=== PATIENT | female | born 1960 | race Caucasian/White ===

== ENCOUNTER 2016-11-04 13:01 | Emergency (ER) | payer OTHER ==
--- NOTE | 2016-11-04 13:49 | EDPHY ---
HPI/HX/ROS/PE/MDM Narrative: CHIEF COMPLAINT: Nausea HPI: The patient is a 56 y/o female, with a history of fibromyalgia and asthma, complaining of nausea she attributes to eating shrimp last night. She says she was recently diagnosed with several food allergies through skin testing, but shellfish was not tested. A short time after eating shrimp last night she developed the sensation of a "heavy stomach" and waxing and waning nausea. She had frequent non-diarrheal bowel movements through the night and has ongoing nausea this morning. She denies abdominal pain, rash, itching, fever, blood in stool, vomiting, dyspnea, chest pain, or throat tightness. She says her symptoms are similar to prior reactions to food allergens. She doesn't tolerate side effects from prednisone and Benadryl well, so she has not taken anything for her symptoms. REVIEW OF SYSTEMS: Aside from elements discussed in the HPI, a comprehensive 10-point review of systems was reviewed and is negative. PMH: Fibromyalgia, asthma, diabetes, sleep apnea Prior medical records reviewed including ED visit on 11/29/15 for bug bite. SOCIAL HISTORY: Nonsmoker, no recent alcohol use PHYSICAL EXAM: General:Patient is alert, morbidly obese, in no acute distress. ENT:Eyes are normal to inspection. ENT inspection normal. Neck: Normal inspection. Full range of motion. Respiratory:No respiratory distress. Breath sounds normal bilaterally. Cardiovascular: Regular rate and rhythm. Strong peripheral pulses. Normal cap refill. Abdomen:The abdomen is nontender to palpation. There are no peritoneal signs. Back: Normal to inspection. No tenderness to palpation. Skin: Normal color. No rash. Warm and dry. Extremities: Normal appearance. Full range of motion. Neuro: Oriented x3. Normal motor function. Normal sensory function. ED Course: I discussed treatment options with the patient and she has opted to not take any medications for her symptoms. She states, "I will vote for riding it out safely rather than making things worse" and "I'm good to go home." Given that she has no respiratory distress and a benign abdominal exam, I agree that she is safe for discharge at this time. We discussed return precautions and recommended follow up with her advanced [employer] delivery system for any concern regarding shellfish allergy. General Time Seen by Provider: 11/04/16 13:36 Initial Vital Signs: Initial Vital Signs Temperature (C) 36.5 C 11/04/16 13:14 Heart Rate 73 11/04/16 13:14 Respiratory Rate 16 11/04/16 13:14 Blood Pressure 124/69 H 11/04/16 13:14 O2 Sat (%) 99 11/04/16 13:14 O2 Delivery Mode Room Air Allergies/Adverse Reactions: cephalexin Allergy (Verified 11/29/15 00:32) metformin Allergy (Verified 11/29/15 00:32) morphine Allergy (Verified 11/29/15 00:32) sitagliptin phosphate [From Januvia] Allergy (Verified 11/29/15 00:32) Sulfa (Sulfonamide Antibiotics) Allergy (Verified 11/29/15 00:32) Home Medications: Medication Instructions Recorded Albuterol 11/29/15 Aspirin 81mg (OTC) 11/29/15 Lisinopril/Hctz 20/12.5MG 11/29/15 Pioglitazone HCl 11/29/15 SIMVASTATIN 11/29/15 Sertraline HCl [Zoloft 50mg (*)] 11/29/15 Departure - Departure Disposition: Home, Routine, Self-Care Clinical Impression: Nausea Condition: Good Instructions: Acute Nausea and Vomiting (ED) Additional Instructions: Follow up with your [employer] delivery system for continued concerns about shellfish allergy. Okay to take 25mg of Benadryl daily if you develop signs of allergic reaction. Return to the ED if you experience shortness of breath, abdominal pain, fever, or other worsening of condition. Referrals: [facility] ROBL[facility] [Other] - As per Instructions Report Scribed for: Marcus Hair Report Scribed by: Michelle Gutierrez Date of Report: 11/04/16 Time of Report: 13:39 Physician Review and Approval Statement: Portions of this note were transcribed by an ED scribe. I personally performed the history, physical exam, and medical decision making; and confirm the accuracy of the information in the transcribed note.
[2016-11-04 13:52] VITALS: BP 122/67; PULSE 82; RESP 18; TEMP 98.1; O2SAT 95
== END 2016-11-04 13:51 | disposition home or self-care (01) ==
DX: R11.0 Nausea (principal); E11.9 Type 2 diabetes mellitus without complications; J45.909 Unspecified asthma, uncomplicated; Z79.82 Long term (current) use of aspirin

== ENCOUNTER 2016-11-23 10:20 | Inpatient (IN) | payer OTHER ==
--- NOTE | 2016-11-23 10:44 | EDPHY ---
H & P Time Seen by Provider: 11/23/16 10:23 HPI/ROS: CHIEF COMPLAINT: Right medial knee pain HISTORY OF PRESENT ILLNESS: 56 year old obese female arrives via ambulance after she slipped on a wet surface sustained a hypervalgus stress to her right knee. She was able to bear weight after some individuals helped her get up. Reproducible pain with full weight-bearing. No direct trauma to the right knee. Prior history of fibromyalgia. She denies: Head injury, back pain injury, buttock pain or injury REVIEW OF SYSTEMS: A ten point review of systems was performed and is negative with the exception of the items mentioned in the HPI PAST MEDICAL/SURGICAL HISTORY: Diabetes. Fibromyalgia. Sleep apnea SOCIAL HISTORY: denies alcohol use at time of incident PHYSICAL EXAM 1) GENERAL: obese, alert and oriented. Appears to be in no acute distress. Answering questions appropriately. 2) HEAD: Normocephalic, atraumatic 3) HEENT: Pupils equal, round, reactive to light bilaterally. . 4) NECK: Posterior cervical spine is nontender, no stepoff, no effusion. Full range of motion which does not elicit any midline cervical spine pain, no posterior midline tenderness, no step-off. 5) LUNGS: Clear to auscultation bilaterally, no wheezes 6) HEART: Regular rate and rhythm, 7) ABDOMEN: No guarding, no rebound, no focal tenderness, no peritoneal signs, no signs of trauma, no ecchymosis 8) MUSCULOSKELETAL: Due to the patient's body habitus normal anatomic landmarks are challenging to appreciate.Exam of the right knee shows no visible soft tissue swelling. Normal coloration temperature. Reproducible pain with range of motion to the medial aspect and reproducible tenderness to palpation medial aspect . Compartments are soft. 9) BACK: No midline vertebral tenderness, no fluctuance, no step-off, no obvious trauma, no visual or palpable abnormality. 10) SKIN: No laceration. No abrasion DIFFERENTIAL DIAGNOSIS: in no particular order including but not limited to fracture, sprain, dislocation Smoking Status: Never smoked Constitutional: Initial Vital Signs Temperature (C) 36.5 C 11/23/16 10:20 Heart Rate 74 11/23/16 10:20 Respiratory Rate 16 11/23/16 10:20 Blood Pressure 108/56 L 11/23/16 10:20 O2 Sat (%) 95 11/23/16 10:20 O2 Delivery Mode Room Air Allergies/Adverse Reactions: almond Allergy (Verified 11/23/16 10:38) apple Allergy (Verified 11/23/16 10:38) carrot Allergy (Verified 11/23/16 10:38) cephalexin Allergy (Verified 11/29/15 00:32) garlic Allergy (Verified 11/23/16 10:38) metformin Allergy (Verified 11/29/15 00:32) morphine Allergy (Verified 11/29/15 00:32) Pork/Porcine Containing Products Allergy (Verified 11/23/16 10:38) sitagliptin phosphate [From Januvia] Allergy (Verified 11/29/15 00:32) squash Allergy (Verified 11/23/16 10:38) Sulfa (Sulfonamide Antibiotics) Allergy (Verified 11/29/15 00:32) tomato Allergy (Verified 11/23/16 10:38) green portillo Allergy (Uncoded 11/23/16 10:38) salmon Allergy (Uncoded 11/23/16 10:38) Home Medications: Medication Instructions Recorded Albuterol 11/29/15 Aspirin 81mg (OTC) 11/29/15 Lisinopril/Hctz 20/12.5MG 11/29/15 Pioglitazone HCl 11/29/15 SIMVASTATIN 11/29/15 Sertraline HCl [Zoloft 50mg (*)] 11/29/15 MDM/Departure - MDM Imaging Results: Imaging Impressions Knee X-Ray 11/23/16 10:34 Impression: Stable tibial plateau fracture. Recommend noncontrast CT in this obese patient. Results discussed with Luis Fernando Jacques. Extremity CT 11/23/16 11:11 Impression: Comminuted, but basically nondepressed and nondisplaced tibial plateau fracture of the right knee, with ACL attached to the anterior tibial spines, which are lifted off of the proximal tibia by 3 mm. Findings and recommendations discussed with Henry Jacques at 1330 hour, 2016. Final report concurs with initial preliminary interpretation. Images reviewed myself Procedures: Procedure: Splint Patient has a tibial plateau fracture. Because of her body habitus a prefabricated knee immobilizer would not fit the patient. Subsequently the ER staff built a knee immobilizer with strips of Orthoglass After application of the splint I returned and re-examined the patient. The splint was adequately immobilizing the joint and distal to the splint the patient's circulation and sensation were intact. Patient shows no signs of compartment syndrome. ED Course/Re-evaluation: Patient was re-evaluated with serial examinations. She is neurovascular intact and has soft compartments. Discussed the case with secondary supervising physician Dr. Aniket Colon. I consulted with orthopedic REE Anthony with Dr. Bebo Addison who recommended immobilization and follow up on Saturday (today is Saturday). 3:50 p.m.: Patient had a knee immobilizer built by the ER mri technician staff and she was re-evaluated. She informs me that with this splint on she does not feel safe being discharged, states that while in the emergency department she has been unable to get up from the commode without assistance, lives by herself in a single level apartment. Crutch walking is not advised to the patient's body habitus. I Think patient will more than likely necessitate admission to the hospital for PT OT and orthopedic consultation. Patient is agreeable with this stating that she does not feel safe being discharged 4:00 p.m.: phone consultation with REE Gould with Dr Addison 4:20 p.m.: Phone consultation with Orthopedics, informed that this is nonsurgical and they recommend admission to hospitalist service for PT/OT. 4:24 p.m.: Phone consultation with hospitalist Dr. mckeon will admit patient - Depart Disposition: [facility] Inpatient Acute Clinical Impression: Unable to care for self Right medial tibial plateau fracture Qualifiers: Encounter type: initial encounter Fracture type: closed Qualified Code(s): S82.131A - Displaced fracture of medial condyle of right tibia, initial encounter for closed fracture Morbid obesity Qualifiers: Obesity type: unspecified obesity type Qualified Code(s): E66.01 - Morbid ( severe) obesity due to excess calories Condition: Good Additional Instructions: Return to the ER immediately if you experience discoloration, have worsening pain, numbness, tingling, or any other symptoms that concern you. If you received x-rays in the emergency department today, be advised, that ligamentous , tendon, muscular, and other non-bony injury cannot be fully ruled out. Try to keep your affected extremity elevated above the level of your chest, and keep cold packs on the affected area, for the next 48 hours. Referrals: [facility] ROBL[facility] [Other] - As per Instructions
[2016-11-23] MEDS ORDERED: ONDANSETRON 4 MG/2 ML VIAL IVP PRN (16:59)
[2016-11-23] MEDS ORDERED: ONDANSETRON DISINTEGRATING 4 MG TAB PO PRN (16:59)
--- NOTE | 2016-11-23 17:35 | GHP ---
[f rep st] HISTORY AND PHYSICAL DATE OF ADMISSION: 11/23/2016 HISTORY OF PRESENT ILLNESS: The patient is a pleasant 56-year-old female with history of diabetes, hypertension, and morbid obesity, who had a mechanical fall today. She mopped her kitchen and she t urned around and her legs hyper-extended. She fell on the ground and landed on her bottom. She did not have antecedent palpitations or loss of consciousness. Did not hit her head. She was able to bear weight but with a great deal of pain, so she called 911. She presented in the emergency [facility] where she was diagnosed with a tibial plateau fracture. Currently she says her pain is well controlled. REVIEW OF SYSTEMS: Complete 10-point review of systems conducted and negative except as noted in th e HPI. PAST MEDICAL HISTORY: Morbid obesity (BMI 65), diabetes on oral's, hypertension, hyperlipidemia, fi bromyalgia, and irritable bowel syndrome with mostly diarrhea. ALLERGIES: Almonds, apples, carrots, Keflex, garlic, metformin, morphine, pork, sitagliptin, squash , sulfa, tomato, green beans, salmon, and brazil nuts. HOME MEDICATIONS: Simvastatin, sertraline, Pioglitazone, lisinopril/hydrochlorothiazide, aspirin, a nd albuterol, SOCIAL HISTORY: No tobacco. Minimal alcohol. SOCIAL HISTORY: Reviewed and unremarkable. PHYSICAL EXAMINATION: VITAL SIGNS: Temp 36.5, blood pressure 108/56, pulse 74, breathing 16 times a minute, 95% on room air. GENERAL: No acute distress. HEENT: Sclerae anicteric. Oropharynx olga lidia ar. Mucous membranes moist. NECK: Supple without lymphadenopathy or JVD. LUNGS: Clear to auscul tation bilaterally. HEART: S1, S2. ABDOMEN: Soft, nontender, nondistended. LOWER EXTREMITIES: No edema. Calves nontender. Her right lower extremity is in a knee immobilizer. SKIN: No rash. NEUROLOGIC: Nonfocal. LABORATORY DATA: There are no labs. RADIOLOGY: Knee x-ray: Images reviewed/interpreted by me, shows a tibial plateau fracture. CT con firms tibial plateau fracture. I discussed the case with Luis Fernando Jacques PA-C, in the emergency department. ASSESSMENT/PLANS: A 56-year-old female with morbid obesity, mechanical fall, and tibial plateau fra cture. 1. Tibial plateau fracture: The patient is nonweightbearing on that side. Her size makes being ab le to ambulate and take care of herself exceedingly difficult, so at this point in time she is admit carmen. Orthopedics has been consulted and felt this to be non operative. They will see her in consul tation. 2. Diabetes: Will reconcile her medicines and follow her blood sugars. I will write for low-dose sliding scale. 3. Prophylaxis: High risk, enoxaparin indicated. 4. Hypertension: Continue her lisinopril/hydrochlorothiazide. 5. Pain. Scheduled Tylenol, p.r.n., oxycodone. Does not need IVs. 6. Disposition: Inpatient status. /[id number]/MODL
[2016-11-23] MEDS ORDERED: ALBUTEROL 60 PUFFS/8 GM MDI IH PRN (18:34)
[2016-11-23] MEDS ORDERED: ALBUTEROL 200 PUFFS/18 GM MDI IH PRN (18:39)
--- NOTE | 2016-11-23 18:49 | SOAPPROG ---
SOAP Progress Note Assessment/Plan: Assessment/Plan: Right tibial plateau fracture -Nonoperative treatment at this time -Pt will remain NWB of her RLE, and remain in orthoglass post/collateral splint -Cont PT/OT, eval for use of assistive devices, and if pt qualifies for inpt rehab -Cont Lovenox for VTE chemoprophylaxis per medicine service -Cont compressive estrella bandages,a nd encourage contralateral ankle pumps for VTE mechanical prophylaxis -Likely will need lots of assistance on d/c, likely at least SNF or inpatient rehab for mobilization 11/23/16 18:46 Subjective: Pt seen at bedside. No complaints of significant pain, or new onset n/t. Tolerating diet and medications well. Objective: Vital Signs Temp Pulse Resp BP Pulse Ox 36.3 C 77 16 129/76 H 99 11/23/16 17:31 11/23/16 17:31 11/23/16 17:31 11/23/16 17:31 11/23/16 17:31 Orthopedic consultation dictated. ICD10 Worksheet Patient Problems: Problems Problem Status Onset Morbid obesity Acute Right medial tibial plateau fracture Acute
[2016-11-23] MEDS: ACETAMINOPHEN 325 MG TAB PO SCH ×2 (19:43→23:53)
--- NOTE | 2016-11-23 20:05 | GCON ---
[f rep st] CONSULTATION ORTHOPEDIC CONSULTATION CHIEF COMPLAINT: Right leg pain. HISTORY OF PRESENT ILLNESS: The patient is a pleasant 56-year-old female who presents today with a right leg injury. She reports that she had recently mopped her kitchen, and when turning around, felt her right leg start to extend out, causing a valgus stress on her knee. She fell to the ground and then landed on her backside. She reports no loss of consciousness, and no head or neck injuries. She denies any antecedent loss of consciousness, dizziness or syncope. She was initially able to bear weight, but noted considerable pain, so she activated EMS, and was seen at the [facility] Emergency Department. The patient is able to reproduce her pain with full weightbearing, but again denies direct trauma to the right knee. She does note she has a history of fibromyalgia, but denies any new onset numbness or tingling. She denies any posterior calf pain. She also denies any temperature difference in her right lower extremity, as well as any right hip or low back pain. After radiographs were taken in the Emergency Department, the patient was placed in a posterior and a co-lateral Ortho-Glass splint, as the patient was unable to fit into an [id number] knee immobilizer or hinged knee brace. This was applied with a compressive dressing. The patient notes that she was once much more active, and is a former athlete. She states that she has recently decided to increase her activity, and had planned to begin physical therapy for overall strengthening and health improvement. She does note that she has a history of diabetes, hypertension, and morbid obesity. She is very determined to become more active in the future. She reports her pain at this time is well controlled, and is tolerating her diet and medications well. She has no additional concerns or complaints at this time. PAST MEDICAL HISTORY: Morbid obesity (BMI 64.95), hypertension, dyslipidemia, fibromyalgia and irritable bowel syndrome. PAST SURGICAL HISTORY: None. The patient denies any past surgical history. MEDICATIONS: The patient states her home medications include: Simvastatin, sertraline, pioglitazone, lisinopril/hydrochlorothiazide, aspirin, and albuterol. ALLERGIES: The patient states that she has allergies to almonds, apples, carrots, Keflex, garlic, metformin, morphine, pork, sitagliptin, squash, sulfa, tomato, green portillo, salmon and [place] nuts. SOCIAL HISTORY: The patient reports no current tobacco consumption. The patient reports minimal alcohol use. The patient denies any recreational drug use. FAMILY HISTORY: No significant contributory family history is reported today. REVIEW OF SYSTEMS: ORTHOPEDIC: Significant for a past shoulder separation, approximately 30 years ago. This was treated nonoperatively. A complete 10- point review of systems was reviewed today with no additional concerns, complaints, or abnormal findings under the HPI or PMH. PHYSICAL EXAMINATION: VITAL SIGNS: Blood pressure is 129/76, heart rate 77 beats per minute, respirations 16 per minute, O2 saturation 99% on room air, temperature 36.3 degrees Celsius. GENERAL: Obese female, NAD. HEENT: EOMI. PERRLA. Ears and nares are patent and without discharge. OP is clear. MMM. NECK: Supple, no cervical LAD noted. RESPIRATORY: CTAB, no increased WOB noted. CARDIOVASCULAR: RRR. ABDOMEN: Soft, NT/ND. MUSCULOSKELETAL: Examination of the right knee shows no visible signs of significant soft tissue swelling, however with the patient's body habitus this is difficult to appreciate. No significant discoloration or deformity is noted. The patient has reproducible pain with light ROM, more focally on the medial aspect of the knee, which is mildly TTP. Thigh compartments are soft. Lower leg compartments are soft. Calves are in TTP. No palpable vascular cords. Negative Homans bilaterally. SKIN: No rashes or lesions noted. NEUROLOGIC: Nonfocal. The patient has intact light touch sensation distally in the bilateral lower extremities. DNVI BLE. NEURO: A&) x3, appropriate mood and affect, pleasant and cooperative with exam. Speech is noted to be fluent and fluid. No deficits noted. LABORATORY DATA: Radiographs, 4 views of the right knee, are reviewed today showing a medial tibial plateau fracture. Significant soft tissue is slightly obscuring the plain film views today. Examination of CT of the right knee reveals a comminuted, possibly a mildly depressed and nondisplaced tibial plateau fracture of the right knee, with ACL attachment to the anterior tibial spines, slightly lifted as read by Radiology approximately 3 mm. ASSESSMENT: Right knee tibial plateau fracture. PLAN: This patient's case and radiographs were reviewed with Dr. Addison today. At this time, the patient will remain nonweightbearing, and will remain in her constricted Ortho-Glass posterior and co-lateral splint at this time. After discussion of treatment options with the patient, including the roles of surgical intervention, and given the largely nondisplaced manner of this fracture, it is our belief that she would progress well treating as conservatively and nonsurgical at this time. We will encourage mobilization with PT/OT, but the patient may eventually benefit from inpatient physical therapy, as weightbearing restrictions and ambulation with the use of assistive devices may be difficult due to this patient's current weight. This patient has been admitted to the medicine service, who has recommended Lovenox for DVT chemoprophylaxis. I believe this is an excellent choice. After discussion with the nursing staff, we have encouraged ankle pumps in bed the contralateral leg, as well as a contralateral Rogers bandage will be applied, as normal sequential compression devices will not fit this patient. Pain seems to be well controlled on her current pain regimen, thus this will be continued. Again , this patient may benefit from inpatient rehabilitation, or possible long-term care facility. We will continue to follow this patient. Update 11/24/2016: This assessment and plan has been reviewed and agreed upon by Dr. Addison, who also saw and examined the pt on 11/24/2016. /[id number]/MODL MTDD
[2016-11-23] MEDS: SERTRALINE HCL 50 MG TAB PO SCH (20:09)
[2016-11-23] MEDS: ATORVASTATIN CALCIUM 20 MG TAB PO SCH (20:09)
[2016-11-23] MEDS ORDERED: NON-FORMULARY NEW DRUG (Simvastatin [Simvastatin] 40 MG) PO SCH (21:00)
[2016-11-23] MEDS: oxyCODONE IR 5 MG TAB PO PRN (21:53)
[2016-11-23] MEDS ORDERED: PIOGLITAZONE HCL 15 MG TAB PO ONE (22:00)
[2016-11-24] MEDS: oxyCODONE IR 5 MG TAB PO PRN ×5 (01:03→19:46)
[2016-11-24] MEDS ORDERED: CYCLOBENZAPRINE 10 MG TAB PO PRN (04:50)
[2016-11-24] MEDS: ACETAMINOPHEN 500 MG TAB PO SCH ×3 (05:38→22:29)
--- NOTE | 2016-11-24 06:49 | SOAPPROG ---
SOAP Progress Note Assessment/Plan: Assessment/Plan: Right tibial plateau fracture -Nonoperative treatment at this time -Pt will remain NWB of her RLE, and plaster splint applied today w/ posterior and lateral support -Cont current PO pain management, pt has voiced desire to avoid opiates as first line -Cont PT/OT, eval for use of assistive devices, and if pt qualifies for inpt rehab -Cont Lovenox for VTE chemoprophylaxis per medicine service -Cont compressive estrella bandages,a nd encourage contralateral ankle pumps for VTE mechanical prophylaxis -Likely will need lots of assistance on d/c, likely at least SNF or inpatient rehab for mobilization 11/24/16 06:48 Subjective: Pt reports she has no significant pain at rest. She does report continued pain with movement of the leg. She continues to deny any posterior calf pain bilaterally, or any sob/cp. She states she is tolerating her diet and medications well. We have changed the splint today, which she reported was very painful with movement and with the heat from the plaster. She has no additional concerns or complaints at this time. Objective: Vital Signs Temp Pulse Resp BP Pulse Ox 36.8 C 69 18 108/59 L 94 11/24/16 04:00 11/24/16 04:00 11/24/16 04:00 11/24/16 04:00 11/24/16 04:00 11/23/16 11/24/16 11/25/16 05:59 05:59 05:59 Intake Total 500 Output Total 600 Balance -100 A&Ox3, appropriate mood and affect, pleasant and cooperative with today's exam. VSS. Exam of RLE reveals intact orthoglass posterior and collateral splint. This is removed revealing no significant swelling discoloration or deformity. TTP over medial aspect of the knee, and with motion flex/ext. Plaster splint applied posteriorly and laterally. Wrapped with compressive estrella bandage. Post calves NTTP, neg Carina's bilat. DNVI BLE. ICD10 Worksheet Patient Problems: Problems Problem Status Onset Morbid obesity Acute Right medial tibial plateau fracture Acute
[2016-11-24] MEDS ORDERED: PIOGLITAZONE HCL 30 MG PO SCH (09:00)
[2016-11-24] MEDS ORDERED: ENOXAPARIN 40 MG/0.4 ML SYR SC SCH (09:00)
[2016-11-24] MEDS: LISINOPRIL/HCTZ 20/12.5MG 1 EA TAB PO SCH (10:18)
[2016-11-24] MEDS: CHOLECALCIFEROL VIT D3 1,000 UNITS TAB PO SCH (10:18)
[2016-11-24] MEDS: ASPIRIN EC 81 MG TAB PO SCH (10:19)
[2016-11-24] MEDS: PIOGLITAZONE HCL 15 MG TAB PO SCH (10:19)
[2016-11-24] MEDS ORDERED: POLYETHYLENE GLYCOL 3350 17 GM PKT PO PRN (13:39)
[2016-11-24] MEDS ORDERED: LACTULOSE 20 GM/30 ML UDCUP PO PRN (13:39)
[2016-11-24] MEDS ORDERED: BISACODYL 10 MG SUPP PR PRN (13:39)
[2016-11-24] MEDS ORDERED: MAGNESIUM HYDROXIDE 30 ML UDCUP PO PRN (13:39)
[2016-11-24] MEDS: SENNOSIDES/DOCUSATE SODIUM TAB PO SCH ×2 (14:36→19:47)
--- NOTE | 2016-11-24 15:03 | HOSPPROG ---
Hospitalist Progress Note Assessment/Plan: Patient is a 56 y/o female who sustained a mechanical fall. She was seen in the ER and diagnosed with a tibial plateau fracture. Today is my first encounter with the patient, chart reviewed. *tibial plateua fx NwB to RLE *Diabetes Actos resumed *htn bp stable *morbid obesity with a BMI of 66 *dvt prophylaxis: LMWH *Plan: will ask IP rehab to evaluate, check labs in a.m. Subjective: [place] has no c/o pain. Objective: Vital Signs Temp Pulse Resp BP Pulse Ox 36.6 C 66 15 133/60 H 95 11/24/16 07:50 11/24/16 07:50 11/24/16 07:50 11/24/16 07:50 11/24/16 07:50 11/23/16 11/24/16 11/25/16 05:59 05:59 05:59 Intake Total 500 Output Total 600 Balance -100 - Physical Exam Constitutional: appears nourished, obese Eyes: PERRL Ears, Nose, Mouth, Throat: hearing normal Cardiovascular: regular rate and rhythym Respiratory: no respiratory distress Skin: warm, other (right foot in splint/ swelling around ankle area/ 1+ dp pulse ) Musculoskeletal: generalized weakness Neurologic: AAOx3 Psychiatric: interacting appropriately, not anxious ICD10 Worksheet Patient Problems: Problems Problem Status Onset Morbid obesity Acute Right medial tibial plateau fracture Acute
[2016-11-24] MEDS: ATORVASTATIN CALCIUM 20 MG TAB PO SCH (19:46)
[2016-11-24] MEDS: SERTRALINE HCL 50 MG TAB PO SCH (19:48)
[2016-11-24] MEDS: ENOXAPARIN 60 MG/0.6 ML SYR SC SCH (19:48)
[2016-11-25] MEDS: oxyCODONE IR 5 MG TAB PO PRN ×4 (00:38→14:21)
[2016-11-25 05:20] LABS: ANION GAP 11 mEq/L (8-16); CALCIUM 9.4 mg/dL (8.5-10.4); CARBON DIOXIDE 21 mEq/l (22-31); CHLORIDE 104 mEq/L (97-110); CREATININE 1.2 mg/dL (0.6-1.0); GLOMERULAR FILTRATION RATE 47; GLUCOSE 87 mg/dL (70-100); SODIUM 136 mEq/L (134-144)
[2016-11-25] MEDS: ACETAMINOPHEN 500 MG TAB PO SCH ×3 (06:04→22:45)
[2016-11-25] MEDS: CHOLECALCIFEROL VIT D3 1,000 UNITS TAB PO SCH (08:04)
[2016-11-25] MEDS: ENOXAPARIN 60 MG/0.6 ML SYR SC SCH ×2 (08:04→20:01)
[2016-11-25] MEDS: LISINOPRIL/HCTZ 20/12.5MG 1 EA TAB PO SCH (08:05)
[2016-11-25] MEDS: PIOGLITAZONE HCL 15 MG TAB PO SCH (08:05)
[2016-11-25] MEDS: ASPIRIN EC 81 MG TAB PO SCH (08:05)
[2016-11-25] MEDS: SENNOSIDES/DOCUSATE SODIUM TAB PO SCH ×2 (08:05→22:46)
[2016-11-25 08:32] LABS: % IMMATURE GRANULYOCYTES 0.5 % (0.0-1.1); ABSOLUTE IMMATURE GRANULOCYTES 0.04 10^3/uL (0.00-0.10); ADD DIFF? NO; ADD MORPH? NO; ADD SCAN? NO; ATYPICAL LYMPHOCYTE FLAG 0 (0-99); FRAGMENT RBC FLAG 0 (0-99); HEMATOCRIT 35.1 % (38.0-47.0); HEMOGLOBIN 11.2 g/dL (12.6-16.3); LEFT SHIFT FLG 0 (0-99); LIPEMIA HEMOLYSIS FLAG 80 (0-99); MEAN CELL HEMOGLOBIN 30.1 pg (27.9-34.1); MEAN CELL HEMOGLOBIN CONCENTR. 31.9 g/dL (32.4-36.7); MEAN CELL VOLUME 94.4 fL (81.5-99.8); MEAN PLATELET VOLUME 10.2 fL (8.7-11.7); PLATELET CLUMPS FLAG 0 (0-99); PLATELET COUNT 238 10^3/uL (150-400); RED BLOOD CELL COUNT 3.72 10^6/uL (4.18-5.33); RED CELL DISTRIBUTION WIDTH 14.7 % (11.5-15.2)
--- NOTE | 2016-11-25 10:27 | SOAPPROG ---
SOAP Progress Note Assessment/Plan: Assessment/Plan: Right tibial plateau fracture -Nonoperative treatment at this time -Pt will remain NWB of her RLE, and in plaster splint w/ posterior and lateral support, may need to check for skin breakdown intermittently -Cont current PO pain management, pt has voiced desire to avoid opiates as first line -Cont PT/OT, eval for use of assistive devices, and if pt qualifies for inpt rehab -Cont Lovenox for VTE chemoprophylaxis per medicine service -Cont compressive estrella bandages, and encourage contralateral ankle pumps for VTE mechanical prophylaxis -Eval for IP rehab vs SNF, case management will follow -Will need to evaluate underlying skin on affected leg for skin breakdown periodically -OK to d/c from orthopedic standpoint. 11/25/16 13:31 Subjective: Pt seen at bedside. No reports of significant pain at this time, but does note some discomfort after splinting yesterday. She states this is well controlled on her current medication, though she does note some nausea. She states she is tolerating her splint well, but states she has not yet worked with PT/OT today. She has no additional concerns or complaints at this time. Objective: Vital Signs Temp Pulse Resp BP Pulse Ox 36.6 C 74 16 110/49 L 89 L 11/25/16 07:52 11/25/16 07:52 11/25/16 07:52 11/25/16 07:52 11/25/16 07:52 Laboratory Results 11/25/16 08:12 11/25/16 04:48 11/24/16 11/25/16 11/26/16 05:59 05:59 05:59 Intake Total 500 350 Output Total 600 800 Balance -100 -450 Pt seen at bedside. A&Ox3, appropriate mood and affect, pleasant and cooperative with today's exam. Exam of the RLE reveals intact plaster splint and compressive estrella dressing. Skin over the anterior surface of the leg reveal no increases in swelling or discoloration. Pt remains slightly TTP over the medial aspect of her knee. Thigh compartments are supple, posterior calves are NTTP, no palpable vascular cords, neg Homans. DNVI BLE. ICD10 Worksheet Patient Problems: Problems Problem Status Onset Morbid obesity Acute Right medial tibial plateau fracture Acute
--- NOTE | 2016-11-25 10:58 | HOSPPROG ---
Hospitalist Progress Note Assessment/Plan: Patient is a 56 y/o female who sustained a mechanical fall. She was seen in the ER and diagnosed with a tibial plateau fracture. *tibial plateua fx NwB to RLE *Diabetes Actos resumed *htn bp stable *renal insufficiency unclear of her baseline will need repeat labs *morbid obesity with a BMI of 66 *dvt prophylaxis: LMWH *Plan: IP rehab to evaluate Subjective: Marietta has no complaints/ had some nausea earliert today when taking pain meds. Objective: Vital Signs Temp Pulse Resp BP Pulse Ox 36.6 C 74 16 110/49 L 89 L 11/25/16 07:52 11/25/16 07:52 11/25/16 07:52 11/25/16 07:52 11/25/16 07:52 Laboratory Results 11/25/16 08:12 11/25/16 04:48 11/24/16 11/25/16 11/26/16 05:59 05:59 05:59 Intake Total 500 350 Output Total 600 800 Balance -100 -450 - Physical Exam Constitutional: not in pain, obese Eyes: PERRL Ears, Nose, Mouth, Throat: hearing normal Cardiovascular: regular rate and rhythym, edema (bilateral lower ext) Respiratory: no respiratory distress Skin: warm, other (good cms on right foot) Musculoskeletal: No full muscle strength Neurologic: AAOx3 Psychiatric: interacting appropriately, not anxious ICD10 Worksheet Patient Problems: Problems Problem Status Onset Morbid obesity Acute Right medial tibial plateau fracture Acute
[2016-11-25] MEDS: ATORVASTATIN CALCIUM 20 MG TAB PO SCH (20:02)
[2016-11-25] MEDS: SERTRALINE HCL 50 MG TAB PO SCH (20:03)
[2016-11-26] MEDS: ACETAMINOPHEN 500 MG TAB PO SCH ×3 (05:35→23:03)
[2016-11-26] MEDS: ASPIRIN EC 81 MG TAB PO SCH (09:20)
[2016-11-26] MEDS: ENOXAPARIN 60 MG/0.6 ML SYR SC SCH ×2 (09:20→23:02)
[2016-11-26] MEDS: PIOGLITAZONE HCL 15 MG TAB PO SCH (09:20)
[2016-11-26] MEDS: CHOLECALCIFEROL VIT D3 1,000 UNITS TAB PO SCH (09:21)
[2016-11-26] MEDS: SENNOSIDES/DOCUSATE SODIUM TAB PO SCH ×2 (09:24→23:02)
--- NOTE | 2016-11-26 09:46 | HOSPPROG ---
Hospitalist Progress Note Assessment/Plan: Patient is a 56 y/o female who sustained a mechanical fall. She was seen in the ER and diagnosed with a tibial plateau fracture. *tibial plateua fx NwB to RLE *Diabetes Actos resumed *htn bp stable *renal insufficiency unclear of her baseline will need repeat labs *morbid obesity with a BMI of 66 *dvt prophylaxis: LMWH *Plan: IP rehab to evaluate, if doesn't qualify will need a SNF Subjective: Marietta had a poor night of sleep/ had loose bowel movement after getting senna. Objective: Vital Signs Temp Pulse Resp BP Pulse Ox 36.8 C 69 18 96/53 L 95 11/26/16 07:58 11/26/16 07:58 11/26/16 07:58 11/26/16 07:58 11/26/16 07:58 Laboratory Results 11/25/16 08:12 11/25/16 04:48 11/25/16 11/26/16 11/27/16 05:59 05:59 05:59 Intake Total 350 1000 Output Total 800 850 Balance -450 150 - Physical Exam Constitutional: no apparent distress, appears nourished, obese Eyes: PERRL Ears, Nose, Mouth, Throat: hearing normal Cardiovascular: regular rate and rhythym Respiratory: no respiratory distress Skin: warm, other (right toes with good cms) Musculoskeletal: generalized weakness Neurologic: AAOx3 Psychiatric: interacting appropriately, not anxious ICD10 Worksheet Patient Problems: Problems Problem Status Onset Morbid obesity Acute Right medial tibial plateau fracture Acute
--- NOTE | 2016-11-26 10:03 | SOAPPROG ---
SOAP Progress Note Assessment/Plan: Assessment/Plan: right tibial plateau fracture - Non-operative treatment with splints in place - Pain management with Tylenol, try to avoid narcotics - Lovenox for VTE chemoprophylaxis - Continue PT/OT - IP rehab to evaluate today - NWB RLE 11/26/16 10:00 Subjective: Pt states she is doing well. Pain is minimal. She did have a flare yesterday of her IBS secondary to the narcotics, she hopes to just use Tylenol at this point for pain control. Pt denies fever, chills, chest pain, SOB, abdominal pain , N/V/D, calf pain, numbness and tingling. Objective: Vital Signs Temp Pulse Resp BP Pulse Ox 36.8 C 69 18 96/53 L 95 11/26/16 07:58 11/26/16 07:58 11/26/16 07:58 11/26/16 07:58 11/26/16 07:58 Laboratory Results 11/25/16 08:12 11/25/16 04:48 11/25/16 11/26/16 11/27/16 05:59 05:59 05:59 Intake Total 350 1000 Output Total 800 850 Balance -450 150 Physical Exam - Physical Exam General Appearance: alert, no apparent distress Skin: normal color, warm/dry Extremities: normal capillary refill, other (Splint intact RLE), No pedal edema , No calf tenderness, No swelling, No Carina's sign Neuro/Psych: no motor/sensory deficits, alert, normal mood/affect, oriented x 3 ICD10 Worksheet Patient Problems: Problems Problem Status Onset Morbid obesity Acute Right medial tibial plateau fracture Acute
[2016-11-26] MEDS: LISINOPRIL/HCTZ 20/12.5MG 1 EA TAB PO SCH (13:28)
[2016-11-26] MEDS: ATORVASTATIN CALCIUM 20 MG TAB PO SCH (23:01)
[2016-11-26] MEDS: SERTRALINE HCL 50 MG TAB PO SCH (23:01)
[2016-11-27] MEDS: ACETAMINOPHEN 500 MG TAB PO SCH ×2 (04:50→13:37)
--- NOTE | 2016-11-27 06:56 | SOAPPROG ---
SOAP Progress Note Assessment/Plan: Assessment/Plan: Right tibial plateau fracture -Nonoperative treatment at this time -Pt will remain NWB of her RLE, and in plaster splint w/ posterior and lateral support -Cont current PO pain management, pt has voiced desire to avoid opiates as first line -Cont PT/OT, eval for use of assistive devices, and if pt qualifies for inpt rehab -Cont Lovenox for VTE chemoprophylaxis per medicine service -Cont compressive estrella bandages, and encourage contralateral ankle pumps for VTE mechanical prophylaxis -Will need to evaluate underlying skin on affected leg for skin breakdown periodically, will explore possibility of a custom brace -OK to d/c from orthopedic standpoint, likely [facility] or [facility]. 11/27/16 06:55 Subjective: Pt seen at bedside. States her pain is improved, but that her splint "is not the most comfortable." She does note that she has met with IP rehab, who has recommended either [facility] or [facility], with a possible IP eval again in the future. She has no additional concerns or complaints at this time. Objective: Vital Signs Temp Pulse Resp BP Pulse Ox 36.4 C 77 16 105/55 L 91 L 11/26/16 23:46 11/26/16 23:46 11/26/16 23:46 11/26/16 23:46 11/26/16 23:46 Laboratory Results 11/25/16 08:12 11/26/16 11/27/16 11/28/16 05:59 05:59 05:59 Intake Total 1000 300 Output Total 850 Balance 150 300 Pt seen at bedside, awoken for exam. A&Ox3, appropriate mood and affect, pleasant and cooperative with exam. Pt remains in her posterior and lateral splint, which was removed yesterday for skin check. Pt is able to dorsiflex/ plantarflex foot/ankle/hallux, intact to light touch sensation distally. Post calves NTTP, neg Carina's bilat. DNVI BLE. ICD10 Worksheet Patient Problems: Problems Problem Status Onset Morbid obesity Acute Right medial tibial plateau fracture Acute
[2016-11-27 07:02] LABS: ANION GAP 7 mEq/L (8-16); CALCIUM 9.4 mg/dL (8.5-10.4); CARBON DIOXIDE 24 mEq/l (22-31); CHLORIDE 104 mEq/L (97-110); CREATININE 1.1 mg/dL (0.6-1.0); GLOMERULAR FILTRATION RATE 52; GLUCOSE 99 mg/dL (70-100); SODIUM 135 mEq/L (134-144)
[2016-11-27 08:43] VITALS: BP 121/67; PULSE 69; RESP 14; TEMP 98.3; O2SAT 95
[2016-11-27] MEDS: ENOXAPARIN 60 MG/0.6 ML SYR SC SCH (09:23)
[2016-11-27] MEDS: ASPIRIN EC 81 MG TAB PO SCH (09:24)
[2016-11-27] MEDS: LISINOPRIL/HCTZ 20/12.5MG 1 EA TAB PO SCH (09:24)
[2016-11-27] MEDS: SENNOSIDES/DOCUSATE SODIUM TAB PO SCH (09:24)
[2016-11-27] MEDS: PIOGLITAZONE HCL 15 MG TAB PO SCH (09:24)
[2016-11-27] MEDS: CHOLECALCIFEROL VIT D3 1,000 UNITS TAB PO SCH (09:24)
--- NOTE | 2016-11-27 09:38 | HOSPPROG ---
Hospitalist Progress Note Assessment/Plan: Patient is a 56 y/o female who sustained a mechanical fall. She was seen in the ER and diagnosed with a tibial plateau fracture. *tibial plateua fx NwB to RLE ortho looking at custom brace *Diabetes Actos resumed *htn bp stable *renal insufficiency creat is 1.1 *morbid obesity with a BMI of 66 *dvt prophylaxis: LMWH *Plan: poss dc today to [facility] or [facility]/ custom brace per ortho. Subjective: Marietta didn't sleep well last night/ pain is a '6' on scale of 1-10. Objective: Vital Signs Temp Pulse Resp BP Pulse Ox 36.8 C 69 14 121/67 H 95 11/27/16 08:42 11/27/16 08:42 11/27/16 08:42 11/27/16 09:24 11/27/16 08:42 Laboratory Results 11/25/16 08:12 11/27/16 05:56 11/26/16 11/27/16 11/28/16 05:59 05:59 05:59 Intake Total 1000 300 Output Total 850 Balance 150 300 - Physical Exam Constitutional: not in pain, obese, uncomfortable Ears, Nose, Mouth, Throat: hearing normal Cardiovascular: regular rate and rhythym (distant heart tones), edema ( bilaterally in ankles) Respiratory: no respiratory distress, reduced air movement Gastrointestinal: normoactive bowel sounds, other (large and round) Skin: warm Musculoskeletal: generalized weakness, other (good cms in right foot) Neurologic: AAOx3 Psychiatric: interacting appropriately, not anxious ICD10 Worksheet Patient Problems: Problems Problem Status Onset Morbid obesity Acute Right medial tibial plateau fracture Acute
--- NOTE | 2016-11-27 13:42 | PDIAF ---
- Diagnosis Diagnosis: tibial plateau fx Code Status: Full Code - Medication Management Discharge Medications: Medications to Continue on Transfer Albuterol [Proventil Inhaler HFA (*)] 1 - 2 puffs IH Q4H PRN 11/23/16 [Last Taken Unknown] Aspirin EC [Aspirin EC 81 mg (*)] 81 mg PO DAILY 11/23/16 [Last Taken 11/23/16] Cholecalciferol Vit D3 [Vitamin D3 (*)] 5,000 units PO DAILY 11/23/16 [Last Taken 11/23/16] Lisinopril/Hctz 20/12.5MG [Zestoretic/Prinzide 20/12.5MG (*)] 1 ea PO DAILY 03/03 [Last Taken 11/23/16] Pioglitazone HCl [Actos] 30 mg PO DAILY 11/23/16 [Last Taken 11/23/16] Sertraline HCl [Zoloft 50mg (*)] 50 mg PO HS 11/23/16 [Last Taken 11/22/16] Simvastatin 40 mg PO HS 11/23/16 [Last Taken 11/22/16] Acetaminophen [Tylenol ES 500 mg (*)] 1,000 mg PO Q8 tab 11/27/16 [Last Taken Unknown] Cyclobenzaprine [Flexeril 10 MG (*)] 10 mg PO TID PRN #0 tab 11/27/16 [Last Taken Unknown] Enoxaparin [Lovenox 60 MG (*)] 60 mg SC BID syr 11/27/16 [Last Taken Unknown] Polyethylene Glycol 3350 [Miralax 17 gm (*)] 17 gm PO DAILY PRN #0 pkt 11/27/16 [Last Taken Unknown] Sennosides/Docusate Sodium [Senokot-S] 1 - 2 tab PO BID tab 11/27/16 [Last Taken Unknown] oxyCODONE IR [Oxycodone Ir (*)] 5 - 10 mg PO Q3HRS PRN #0 tab 11/27/16 [Last Taken Unknown] Discharge Medications: Refer to the Discharge Home Medication list for PRN reason. - Orders Services needed: Physical Therapy, Occupational Therapy Diet Recommendation: ADA 2000 consistent carb Diet Texture: Regular Texture Diet Wound Care Instructions: Wound care orders for pannus: to be done by ceo every morning and at HS. 1) cleanse site gently w/ warm water and washcloth. 2 ) pat dry. 3) tuck Interdry sheet into both sides of pannus, covering any red/ broken down areas (this may require 2-3 sheets). Sheets may be rinsed out at HS and hung up to dry. Please have a revolving set, with one applied to patient at all times while the other set dries, rotating at a.m. and HS. DO NOT USE w/ anti-fungal powder or cream, as this inactivates the wicking action of the Interdry. Lela Vieyra RN, wound care, Activity/Weight Bearing Restrictions: NWB to rle/ monitor right lower ext for any skin breakdown Additional: continue lovenox until patient is more mobile - Labs/Radiology BMP Date: 12/04/16 CBC Date: 12/04/16 - Follow Up Care Current Providers and Referrals: RAMOS ROBLES [Other] - As per Instructions Bebo Addison MD [Medical Doctor] - (Pt will follow up w/ Dr. Addison as an outpatient in approximately 4 weeks time for repeat radiographs and assessment, or sooner with any additional concerns or complaints. She is encouraged to contact the office as soon as possible to schedule this appointment.)
--- NOTE | 2016-11-27 14:27 | GDS ---
[f rep st] DISCHARGE SUMMARY DISCHARGE DIAGNOSES: 1. Tibial plateau fracture on the right. 2. Diabetes. 3. Hypertension. 4. Renal insufficiency. 5. Morbid obesity with a BMI of 66. CONSULTATIONS DURING HER STAY: Dr. Bebo Addison. HISTORY OF PRESENT ILLNESS: Briefly, the patient is a 56-year-old female with a history of diabetes, hypertension, morbid obesity, who had a mechanical fall. She was mopping her kitchen and turned around and her legs hyperextended. She sustained a fall. She came to the emergency room for further evaluation and was diagnosed with a tibial plateau fracture. She was seen and evaluated by Carol Shahid, physician laboratory chemical assistant with Dr. Addison. The plan was for the patient to be non-weight bearing. They are arranging for her to have a custom splint. The other recommendation is for her to have good skin care because of her size and the concern of the splint rubbing on her leg. HOSPITAL COURSE PER PROBLEM: 1. Right tibial plateau fracture. Further follow up with Dr. Addison. She will be getting a custom brace and it is critical that her skin be monitored closely. 2. Diabetes. Actos has been resumed. 3. Hypertension, blood pressure is stable. 4. Renal insufficiency. We have checked her creatinine, it is 1.1. We will have this rechecked at the rehabilitation facility. 5. Morbid obesity, with a BMI of 66. PENDING LABS AND TESTS: None. CONDITION AT DISCHARGE: Stable. Blood pressure is 121/67, heart rate 69, respiratory rate is 14, O2 sats on room air 95%, temperature is 36.8 Celsius. MEDICATIONS AT DISCHARGE: Please see the EMR. DISCHARGE INSTRUCTIONS: 1. To get follow up with Dr. Addison in approximately 4 weeks for repeat radiographs. 2. To get wound care in the [place] area. This has been written out in detail on the interagency form. 3. If she develops fever, chills, chest pain, or shortness of breath, to return to the ER. 4. Continue Lovenox until the patient is more mobile. Greater than 30 minutes discharging and coordinating care. /[id number]/MODL MTDD
== END 2016-11-27 15:35 | DRG 563 ==
LOC: EDUNIT# → F3N 17:09
PROVIDERS: ADMIT Internal Medicine; ATTEND Family Medicine
PROC: 2W3LX1Z Immobilization of Right Lower Extremity using Splint (ICD-10-PCS; principal; 2016-11-23)
DX: S82.144A Nondisplaced bicondylar fracture of right tibia, initial encounter for closed fracture (principal); E11.9 Type 2 diabetes mellitus without complications; I10 Essential (primary) hypertension; N28.9 Disorder of kidney and ureter, unspecified; E78.5 Hyperlipidemia, unspecified; E66.01 Morbid (severe) obesity due to excess calories; W01.0XXA Fall on same level from slipping, tripping and stumbling without subsequent striking against object, initial encounter; Y92.010 Kitchen of single-family (private) house as the place of occurrence of the external cause; Z68.44 Body mass index [BMI] 60.0-69.9, adult
CPT/HCPCS: 97162-GP; 97165-GO; 97530-GO; 97530-GP; 97535-GO; J1650

== ENCOUNTER 2017-02-03 12:38 | Inpatient (IN) | payer OTHER ==
--- NOTE | 2017-02-03 12:58 | EDPHY ---
HPI/HX/ROS/PE/MDM Narrative: CHIEF COMPLAINT: Cellulitis HISTORY OF PRESENT ILLNESS: The patient is a morbidly obese 56-year-old female presenting with left hip cellulitis. The patient developed blisters to the left hip 2 days ago. Since then the area has rapidly increased in redness. The patient is non-weight bearing due to recent tib/fib fracture. She is currently [facility] for [facility] duration of her recovery. Nursing staff there noticed the redness and started monitoring it last night. Since last night the erythema has spread significantly. Patient was placed on doxycycline by the rehab staff but redness has spread beyond the demarkated area. She has some pain at the areas with blisters. She denies fever, vomiting, diarrhea, lightheadedness, urinary complaints, or headache. Patient's BGL recently increased to 168 with onset of redness. REVIEW OF SYSTEMS: Aside from elements discussed in the HPI, a comprehensive 10-point review of systems was reviewed and is negative. PAST MEDICAL HISTORY: Hypertension, Hyperlipidemia, Morbid obesity, Fibromyalgia , Asthma, DM2, Sleep apnea, Recent tib/fib fracture. SOCIAL HISTORY: Rare alcohol use. Non-cigarette smoker. VITAL SIGNS: Reviewed by me GENERAL: Morbidly obese, unable to roll over for examination. Exam limited due to the patients extreme size. HEENT: Atraumatic. Eyes: No icterus, no injection. Mouth: dry mucous membranes. No erythema or lesions. Neck: supple with no adenopathy. LUNGS: Clear to auscultation anteriorly, no wheezes, rhonchi or rales. CARDIAC: Regular rate and rhythm, no rubs, murmurs or gallops. ABDOMEN: Morbidly obese, soft. BACK: Unable to fully examine EXTREMITIES: Left leg: Erythema, edema and warmth over the lateral abdominal wall around to almost the lumbar midline. several areas of blistering, but no weeping or discharge. Area was outlined during examination. Good ROM at left hip. No pain with internal or external rotation. No pain with flexion and extension. Right lower extremity is in a brace. Erythema over sacrum suggestive of a grade 1 bedsore. NEURO: Alert and oriented, grossly nonfocal. SKIN: Warm and dry, no rash. PSYCHIATRIC: Normal mentation, no agitation. ED Course: The patient is a morbidly obese female presenting with left hip cellulitis. The area measures 49cm x 60cm. Patient is afebrile, vitals are normal. I will have the pharmacy dose Vancomycin. Lab work ordered. 1355: I spoke to the hospitalist, Dr. Benedict, he accepts the patient for admission. Sepsis evaluation demonstrated no sign of sepsis, severe sepsis, or septic shock. MDM: Diff dx considered included cellulitis, osteomyelitis, abscess, deep space infection, necrotizing fascitis, bacteremia, septic joint. - Data Points Laboratory Results: Laboratory Results 02/03/17 13:05 02/03/17 13:05 02/03/17 02/03/17 02/03/17 13:20 13:05 13:05 WBC RBC Hgb Hct MCV MCH MCHC RDW Plt Count MPV Neut % (Auto) Lymph % (Auto) Foster % (Auto) Eos % (Auto) Baso % (Auto) Nucleat RBC Rel Count Absolute Neuts (auto) Absolute Lymphs (auto) Absolute Monos (auto) Absolute Eos (auto) Absolute Basos (auto) Absolute Nucleated RBC Immature Gran % Immature Gran # PT 14.9 SEC SEC (12.0-15.0) INR 1.17 H (0.83-1.16) APTT 36.5 SEC SEC (23.0-38.0) VBG Lactic Acid 0.7 mmol/L mmol/L (0.7-2.1) Sodium 136 mEq/L mEq/L (134-144) Potassium 3.8 mEq/L mEq/L (3.5-5.2) Chloride 101 mEq/L mEq/L (97-110) Carbon Dioxide 25 mEq/l mEq/l (22-31) Anion Gap 10 mEq/L mEq/L (8-16) BUN 27 mg/dL H mg/dL (7-23) Creatinine 1.2 mg/dL H mg/dL (0.6-1.0) Estimated GFR 47 Glucose 117 mg/dL H mg/dL (70-100) Calcium 8.5 mg/dL mg/dL (8.5-10.4) Total Bilirubin 0.4 mg/dL mg/dL (0.1-1.4) 02/03/17 13:05 WBC 10.83 10^3/uL H 10^3/uL (3.80-9.50) RBC 3.25 10^6/uL L 10^6/uL (4.18-5.33) Hgb 9.9 g/dL L g/dL (12.6-16.3) Hct 30.7 % L % (38.0-47.0) MCV 94.5 fL fL (81.5-99.8) MCH 30.5 pg pg (27.9-34.1) MCHC 32.2 g/dL L g/dL (32.4-36.7) RDW 14.8 % % (11.5-15.2) Plt Count 210 10^3/uL 10^3/uL (150-400) MPV 10.3 fL fL (8.7-11.7) Neut % (Auto) 79.8 % H % (39.3-74.2) Lymph % (Auto) 11.6 % L % (15.0-45.0) Foster % (Auto) 5.6 % % (4.5-13.0) Eos % (Auto) 2.0 % % (0.6-7.6) Baso % (Auto) 0.3 % % (0.3-1.7) Nucleat RBC Rel Count 0.0 % % (0.0-0.2) Absolute Neuts (auto) 8.63 10^3/uL H 10^3/uL (1.70-6.50) Absolute Lymphs (auto) 1.26 10^3/uL 10^3/uL (1.00-3.00) Absolute Monos (auto) 0.61 10^3/uL 10^3/uL (0.30-0.80) Absolute Eos (auto) 0.22 10^3/uL 10^3/uL (0.03-0.40) Absolute Basos (auto) 0.03 10^3/uL 10^3/uL (0.02-0.10) Absolute Nucleated RBC 0.00 10^3/uL 10^3/uL (0-0.01) Immature Gran % 0.7 % % (0.0-1.1) Immature Gran # 0.08 10^3/uL 10^3/uL (0.00-0.10) PT INR APTT VBG Lactic Acid Sodium Potassium Chloride Carbon Dioxide Anion Gap BUN Creatinine Estimated GFR Glucose Calcium Total Bilirubin Medications Given: Vancomycin HCl 1.5 gm/ (Dextrose) 250 mls @ 166.667 mls/hr IV ONCE ONE Stop: 02/03/17 15:59 Last Admin: 02/03/17 14:31 Dose: 250 mls Discontinued Medications Sodium Chloride (Ns) 1,000 mls @ 0 mls/hr IV ONCE ONE; Wide Open PRN Reason: Protocol Stop: 02/03/17 13:18 Last Admin: 02/03/17 13:32 Dose: 1,000 mls General Time Seen by Provider: 02/03/17 12:53 Initial Vital Signs: Initial Vital Signs Temperature (C) 36.8 C 02/03/17 12:48 Heart Rate 86 02/03/17 12:48 Respiratory Rate 16 02/03/17 12:48 Blood Pressure 107/49 L 02/03/17 12:48 O2 Sat (%) 92 02/03/17 12:48 O2 Delivery Mode Room Air Allergies/Adverse Reactions: almond Allergy (Verified 02/03/17 12:48) apple Allergy (Verified 02/03/17 12:48) carrot Allergy (Verified 02/03/17 12:48) cephalexin Allergy (Verified 02/03/17 12:48) garlic Allergy (Verified 02/03/17 12:48) metformin Allergy (Verified 02/03/17 12:48) morphine Allergy (Verified 02/03/17 12:48) Pork/Porcine Containing Products Allergy (Verified 02/03/17 12:48) shellfish derived [shrimp] Allergy (Verified 02/03/17 14:59) sitagliptin phosphate [From Januvia] Allergy (Verified 02/03/17 12:48) squash Allergy (Verified 02/03/17 12:48) Sulfa (Sulfonamide Antibiotics) Allergy (Verified 02/03/17 12:48) tomato Allergy (Verified 02/03/17 12:48) tree nut [Nuts] Allergy (Verified 02/03/17 14:59) green portillo Allergy (Uncoded 11/23/16 10:38) salmon Allergy (Uncoded 11/23/16 10:38) Home Medications: Medication Instructions Recorded Albuterol [Proventil Inhaler HFA 1 - 2 puffs IH Q4HRS PRN 11/23/16 (*)] Aspirin EC [Aspirin EC 81 mg (*)] 81 mg PO DAILY 11/23/16 Sertraline HCl [Zoloft 50mg (*)] 50 mg PO HS 11/23/16 Simvastatin 40 mg PO HS 11/23/16 Cholecalciferol (Vitamin D3) 5,000 unit PO DAILY 02/03/17 [Vitamin D3] Cyclobenzaprine [Flexeril 10 MG 10 mg PO Q8HRS PRN 02/03/17 (*)] Doxycycline Hyclate [Vibramycin 100 mg PO DAILY 02/03/17 100 MG (*)] Lisinopril/Hctz 20/12.5MG 2 ea PO DAILY 02/03/17 [Zestoretic/Prinzide 20/12.5MG (*)] Ondansetron [Zofran Odt] 8 mg PO Q6HRS PRN 02/03/17 Pioglitazone HCl [Actos] 30 mg PO DAILY 02/03/17 Departure - Departure Disposition: [facility] Inpatient Acute Clinical Impression: Cellulitis Qualifiers: Site of cellulitis: extremity Site of cellulitis of extremity: lower extremity Laterality: left Qualified Code(s): L03.116 - Cellulitis of left lower limb Condition: Fair Report Scribed for: Latonya Yun Report Scribed by: Tamara Martinez Date of Report: 02/03/17 Time of Report: 12:57 Physician Review and Approval Statement: Portions of this note were transcribed by a medical laboratory technicians. I personally performed a history, physical exam, medical decision making, and confirmed accuracy of information the transcribed note.
[2017-02-03] MEDS ORDERED: NS 1,000 ML IV ONE (13:17)
[2017-02-03 13:21] LABS: % IMMATURE GRANULYOCYTES 0.7 % (0.0-1.1); ABSOLUTE IMMATURE GRANULOCYTES 0.08 10^3/uL (0.00-0.10); ADD DIFF? NO; ADD MORPH? NO; ADD SCAN? NO; ATYPICAL LYMPHOCYTE FLAG 0 (0-99); FRAGMENT RBC FLAG 0 (0-99); HEMATOCRIT 30.7 % (38.0-47.0); HEMOGLOBIN 9.9 g/dL (12.6-16.3); LEFT SHIFT FLG 0 (0-99); LIPEMIA HEMOLYSIS FLAG 80 (0-99); MEAN CELL HEMOGLOBIN 30.5 pg (27.9-34.1); MEAN CELL HEMOGLOBIN CONCENTR. 32.2 g/dL (32.4-36.7); MEAN CELL VOLUME 94.5 fL (81.5-99.8); MEAN PLATELET VOLUME 10.3 fL (8.7-11.7); PLATELET CLUMPS FLAG 10 (0-99); PLATELET COUNT 210 10^3/uL (150-400); RED BLOOD CELL COUNT 3.25 10^6/uL (4.18-5.33); RED CELL DISTRIBUTION WIDTH 14.8 % (11.5-15.2)
[2017-02-03 13:30] LABS: ANION GAP 10 mEq/L (8-16); BILIRUBIN,TOTAL 0.4 mg/dL (0.1-1.4); CALCIUM 8.5 mg/dL (8.5-10.4); CARBON DIOXIDE 25 mEq/l (22-31); CHLORIDE 101 mEq/L (97-110); CREATININE 1.2 mg/dL (0.6-1.0); GLOMERULAR FILTRATION RATE 47; GLUCOSE 117 mg/dL (70-100); INR 1.17 (0.83-1.16); POTASSIUM 3.8 mEq/L (3.5-5.2); PROTIME(PATIENT) 14.9 SEC (12.0-15.0); SODIUM 136 mEq/L (134-144)
[2017-02-03 13:31] LABS: APTT 36.5 SEC (23.0-38.0)
[2017-02-03] MEDS ORDERED: VANCOMYCIN 1.5 GM in D5W 250 ML IV ONE (14:30)
[2017-02-03] MEDS ORDERED: CYCLOBENZAPRINE 10 MG TAB PO PRN (15:14)
[2017-02-03] MEDS ORDERED: ALBUTEROL 60 PUFFS/8 GM MDI IH PRN (15:14)
[2017-02-03] MEDS ORDERED: NON-FORMULARY NEW DRUG (Ondansetron [Zofran Odt] 8 MG) PO PRN (15:14)
[2017-02-03] MEDS ORDERED: ONDANSETRON DISINTEGRATING 4 MG TAB PO PRN ×2 (15:15→15:37)
[2017-02-03] MEDS ORDERED: ONDANSETRON 4 MG/2 ML VIAL IVP PRN (15:15)
[2017-02-03] MEDS ORDERED: ACETAMINOPHEN 325 MG TAB PO PRN (15:15)
[2017-02-03] MEDS ORDERED: ALBUTEROL 200 PUFFS/18 GM MDI IH PRN (15:33)
--- NOTE | 2017-02-03 15:52 | GHP ---
[f rep st] HISTORY AND PHYSICAL DATE OF ADMISSION: 02/03/2017 HISTORY OF PRESENT ILLNESS: The patient is a pleasant 56-year-old female with a history of morbid o besity, recent tibial plateau fracture, which has required her to stay in a rehab facility since Nov of this year. She presents 36 hours of erythema, warmth over her left hip. She denies difficulty with defecation. No vaginal discharge. No urinary symptoms. She is able to move her left hip. S he has had some subjective malaise, but no fever or chills. She does not have a previous history of cellulitis. REVIEW OF SYSTEMS: Complete 10-point review of systems conducted, negative except as in the HPI. PAST MEDICAL HISTORY: 1. Tibial plateau fracture. 2. Obstructive sleep apnea. 3. Super morbid obesity with a BMI of 66. 4. Diabetes on orals. 5. Hypertension. 6. Hyperlipidemia. 7. Fibromyalgia. 8. IBS. SOCIAL HISTORY: Currently, she is a nonsmoker, nondrinker. Currently, staying in a rehab facility. ALLERGIES: Almonds, apples, Keflex, garlic, metformin, morphine, pork, shellfish, sitagliptin, squa sh, sulfa, tomato, tree nuts, green beans, and salmon. HOME MEDICATIONS: Vitamin D3, doxycycline, cyclobenzaprine, ondansetron, pioglitazone, lisinopril/h ydrochlorothiazide, simvastatin, sertraline, albuterol, and aspirin. FAMILY HISTORY: Reviewed, unremarkable. PHYSICAL EXAMINATION: VITAL SIGNS: Temperature 37, blood pressure 107/49, pulse 86, breathing 16 t imes a minute, 98% on room air. GENERAL: In no acute distress. HEENT: Sclerae anicteric. Oropha rynx clear. Mucous membranes are moist. NECK: Supple without lymphadenopathy or JVD. LUNGS: Patricio ar to auscultation bilaterally. HEART: S1, S2. ABDOMEN: Soft, nontender, nondistended. LOWER EX TREMITIES: Show 1+ edema bilaterally. SKIN: Notable for a large patch of erythema over left hip. Again, patient is morbidly obese, so that the hip area is 18 inches x 15 inches. I was unable to h ave the patient turn on her side to see more posteriorly. LABS: White count 10.8 with left shift, hematocrit 30, platelets are 210,000. INR is 1.2. Venous lactate is 0.7. Sodium 136, potassium 3.8, chloride 101, bicarb 25, BUN 27, creatinine 1.2. Glucose 117. That glucose is about her baseline. IMAGING: There is no imaging. I have discussed the case Dr. Latonya Yun. ASSESSMENT AND PLAN: A 56-year-old female with morbid obesity, presents with cellulitis. 1. Cellulitis. She received vancomycin in the emergency department. Given the drug allergies, peter l continue this. She has basically been in an institution since November of this year. She is at risk for resistant organisms; blood cultures have been drawn. She does not have sepsis. 2. Morbid obesity. We will follow. We have advised the importance of weight loss in her recuperat ion. 3. Tibial plateau fracture. She has 50 to 60 pounds of weightbearing on that hip. We will have Ph ysical Therapy and Occupational Therapy see her. 4. Edema. The patient has edema. I will start her on some torsemide in the morning. 5. Diabetes. Will continue her oral medications. 6. Pain. The patient does not have much pain. We will continue her outpatient regimen. 7. Disposition: Inpatient status. 8. Prophylaxis: Enoxaparin 30 b.i.d. /[id number]/MODL
[2017-02-03] MEDS: ENOXAPARIN 60 MG/0.6 ML SYR SC SCH (19:59)
[2017-02-03] MEDS: SERTRALINE HCL 50 MG TAB PO SCH (20:01)
[2017-02-03] MEDS: ATORVASTATIN CALCIUM 20 MG TAB PO SCH (20:01)
[2017-02-03] MEDS ORDERED: ENOXAPARIN 30 MG/0.3 ML SYR SC SCH (21:00)
[2017-02-03] MEDS ORDERED: NON-FORMULARY NEW DRUG (Simvastatin [Simvastatin] 40 MG) PO SCH (21:00)
[2017-02-04] MEDS: VANCOMYCIN 1.5 GM in D5W 250 ML IV SCH ×2 (00:09→12:21)
[2017-02-04 04:50] LABS: % IMMATURE GRANULYOCYTES 0.7 % (0.0-1.1); ABSOLUTE IMMATURE GRANULOCYTES 0.06 10^3/uL (0.00-0.10); ADD DIFF? NO; ADD MORPH? NO; ADD SCAN? NO; ATYPICAL LYMPHOCYTE FLAG 0 (0-99); FRAGMENT RBC FLAG 0 (0-99); HEMATOCRIT 30.5 % (38.0-47.0); HEMOGLOBIN 9.7 g/dL (12.6-16.3); LEFT SHIFT FLG 0 (0-99); LIPEMIA HEMOLYSIS FLAG 80 (0-99); MEAN CELL HEMOGLOBIN 30.3 pg (27.9-34.1); MEAN CELL HEMOGLOBIN CONCENTR. 31.8 g/dL (32.4-36.7); MEAN CELL VOLUME 95.3 fL (81.5-99.8); MEAN PLATELET VOLUME 10.2 fL (8.7-11.7); PLATELET CLUMPS FLAG 0 (0-99); PLATELET COUNT 206 10^3/uL (150-400); RED CELL DISTRIBUTION WIDTH 14.6 % (11.5-15.2)
[2017-02-04 05:00] LABS: ANION GAP 10 mEq/L (8-16); CALCIUM 8.7 mg/dL (8.5-10.4); CARBON DIOXIDE 24 mEq/l (22-31); CHLORIDE 101 mEq/L (97-110); CREATININE 1.1 mg/dL (0.6-1.0); GLOMERULAR FILTRATION RATE 52; GLUCOSE 132 mg/dL (70-100); POTASSIUM 3.4 mEq/L (3.5-5.2); SODIUM 135 mEq/L (134-144)
[2017-02-04] MEDS ORDERED: NON-FORMULARY NEW DRUG (Cholecalciferol (Vitamin D3) [Vitamin D3] 5,000 UNIT) PO SCH (09:00)
[2017-02-04] MEDS ORDERED: PIOGLITAZONE HCL 30 MG PO SCH (09:00)
--- NOTE | 2017-02-04 09:23 | HOSPPROG ---
Hospitalist Progress Note Assessment/Plan: 56 yo F w morbid obesity here w L hip cellulitis cellulitis: clinically improved although still requires add'l 24-48 hours abx given sulfa and cephalosporin allergy, suspect she will need to be dc'd on clinda LE edema: 2/2 obesity + probable pulm htn low dose torsemide started tibial plateau fracture: pt/ot 50-60 lb weight bearing on R leg proph: high risk 60 bid lovenox risk: high Subjective: afebrile. examined while being turned. Objective: Vital Signs Temp Pulse Resp BP Pulse Ox 36.5 C 76 22 H 121/60 H 93 02/04/17 07:51 02/04/17 07:51 02/04/17 07:51 02/04/17 07:51 02/04/17 07:51 Laboratory Results 02/04/17 04:42 02/04/17 04:42 02/03/17 02/04/17 02/05/17 05:59 05:59 05:59 Intake Total 1040 Balance 1040 PT 14.9 SEC (12.0-15.0) 02/03/17 13:05 INR 1.17 (0.83-1.16) H 02/03/17 13:05 - Physical Exam Constitutional: no apparent distress, appears nourished Eyes: PERRL, anicteric sclera Ears, Nose, Mouth, Throat: moist mucous membranes, hearing normal, ears appear normal Cardiovascular: regular rate and rhythym, no murmur, rub, or gallop Respiratory: no respiratory distress, no rales or rhonchi Gastrointestinal: normoactive bowel sounds, soft, non-tender abdomen Genitourinary: no bladder fullness, No ward in urethra Skin: warm, normal color Musculoskeletal: full muscle strength, other (L hip cellulitis still in lines, less warm and erythematous. no fluctuance) Neurologic: AAOx3, sensation intact bilaterally ICD10 Worksheet Patient Problems: Problems Problem Status Onset Right medial tibial plateau fracture Acute Morbid obesity Acute Cellulitis Acute
[2017-02-04] MEDS: TORSEMIDE 20 MG TAB PO SCH (09:29)
[2017-02-04] MEDS: PIOGLITAZONE HCL 15 MG TAB PO SCH (09:29)
[2017-02-04] MEDS: DOXYCYCLINE HYCLATE 100 MG CAP/TAB PO SCH (09:29)
[2017-02-04] MEDS: CHOLECALCIFEROL VIT D3 2,000 UNITS TAB/CAP PO SCH (09:30)
[2017-02-04] MEDS: ASPIRIN EC 81 MG TAB PO SCH (09:30)
[2017-02-04] MEDS: LISINOPRIL/HCTZ 20/12.5MG 1 EA TAB PO SCH (09:30)
[2017-02-04] MEDS: ENOXAPARIN 60 MG/0.6 ML SYR SC SCH ×2 (09:30→20:23)
--- NOTE | 2017-02-04 09:44 | WOCRNPDOC ---
DAVID Advanced Assessment Note - Skin Integrity Problem, Advanced Assess Left Lateral Hip Blister Dressing Type: Open to Air Exudate Amount: None Exudate Characteristic(s): None Sherry Wound Tissue: Erythema (marked by moth exterminator), Swollen Sherry Wound Swelling: Moderate Wound Bed Color: Red Wound Bed Constitution: Intact Serous Filled Blister Site Odor: None Skin Integrity Problem Comment: Scattered, intact serous blisters over patient' s left hip, most likely r/t swelling from underlying cellulitis. Tissues throughout L hip are indurated, erythemic, and warm when compared to adjacent tissues. There is a small scab on the left hip, which patient reports is the result of shearing when she was being repositioned at the rehab facility; this could have been the point of entry for this infection. Presently, erythema remains w/in confines of original marking, and patient does report feeling better today. No need for wound care to be involved, as these blisters will most likely reabsorb as swelling recedes. Left Medial Pannus Dermatitis Dressing Type: Open to Air Sherry Wound Tissue: Blanching, Erythema, Denuded Sherry Wound Swelling: Moderate Wound Bed Color: Red Site Odor: Pungent Skin Integrity Problem Comment: Erythema and denuded skin throughout pannus, the result of moisture-related dermatitis and friction. Due to patient's body habitus, she reports thats this is an ongoing problem for her. When asked about her normal care for this area, she replied that she uses Interdry sheets. Wound care supplied moth exterminator Emma w/ 2 bags of Interdry for patient to use; no need to follow up with patient at this time. Please reconsult PRN. Left Medial Buttock Dressing Type: Open to Air Exudate Amount: None Exudate Characteristic(s): None Integumentary Issue Intervention: Lotion/Cream Applied (dimethicone) Sherry Wound Tissue: Blanching, Intact, Scarred Sherry Wound Swelling: None Skin Integrity Problem Comment: Site assessed w/ moth exterminator Emma. Presently, patient does not have a wound in this location. She does, however, have thick scar tissue on either side of her gluteal cleft. When asked if she had ever had a pressure injury, she denied an history, but did say that she has had some shearing injuries r/t repositioning. In addition, patient uses briefs, and this area is subject to ongoing moisture. Applied dimethicone cream throughout gluteal cleft and buttocks, which should help to protect the skin. No need for wound care to follow this patient ongoing; please reconsult as needed. Right Posterior Knee Dermatitis Dressing Type: ABD Pad (tucked behind knee) Dressing Description: Saturated (w/ perspiration) Sherry Wound Tissue: Intact Sherry Wound Swelling: None Wound Bed Color: Red Site Odor: Pungent Skin Integrity Problem Comment: Erythema and denuded skin in mirrored pattern noted in fold behind posterior R knee, appearance and odor consistent w/ intertriginous dermatitis. Site was malodorous, cleansed w/ dimethicone wipe during assessment. Per patient, she uses Interdry sheets to tuck in skin folds to help w/ skin breakdown. This is an appropriate treatment, and nursing was supplied w/ 2 bags for patient to use.
[2017-02-04] MEDS: SERTRALINE HCL 50 MG TAB PO SCH (20:22)
[2017-02-04] MEDS: ATORVASTATIN CALCIUM 20 MG TAB PO SCH (20:22)
[2017-02-05] MEDS ORDERED: VANCOMYCIN 1.5 GM in D5W 250 ML IV SCH
[2017-02-05] MEDS: DOXYCYCLINE HYCLATE 100 MG CAP/TAB PO SCH (09:06)
[2017-02-05] MEDS: LISINOPRIL/HCTZ 20/12.5MG 1 EA TAB PO SCH (09:06)
[2017-02-05] MEDS: ASPIRIN EC 81 MG TAB PO SCH (09:06)
[2017-02-05] MEDS: PIOGLITAZONE HCL 15 MG TAB PO SCH (09:06)
[2017-02-05] MEDS: TORSEMIDE 20 MG TAB PO SCH (09:07)
[2017-02-05] MEDS: CHOLECALCIFEROL VIT D3 2,000 UNITS TAB/CAP PO SCH (09:07)
[2017-02-05] MEDS: ENOXAPARIN 60 MG/0.6 ML SYR SC SCH ×2 (09:09→22:25)
[2017-02-05 10:09] LABS: ANION GAP 10 mEq/L (8-16); CALCIUM 8.9 mg/dL (8.5-10.4); CARBON DIOXIDE 25 mEq/l (22-31); CHLORIDE 101 mEq/L (97-110); CREATININE 1.1 mg/dL (0.6-1.0); GLOMERULAR FILTRATION RATE 52; GLUCOSE 170 mg/dL (70-100); POTASSIUM 3.3 mEq/L (3.5-5.2); SODIUM 136 mEq/L (134-144)
[2017-02-05] MEDS ORDERED: POTASSIUM CL 20 MEQ TAB PO ONE (11:09)
--- NOTE | 2017-02-05 11:11 | HOSPPROG ---
Hospitalist Progress Note Assessment/Plan: 6 yo F w morbid obesity here w L hip cellulitis cellulitis: clinically improved although still requires add'l 24-48 hours abx cont IV vanc LE edema: 2/2 obesity + probable pulm htn low dose torsemide started tibial plateau fracture: pt/ot 50-60 lb weight bearing on R leg proph: high risk 60 bid lovenox Subjective: feels better. wants to go home Objective: Vital Signs Temp Pulse Resp BP Pulse Ox 36.8 C 85 18 104/41 L 92 02/05/17 08:00 02/05/17 08:00 02/05/17 08:00 02/05/17 08:00 02/05/17 08:00 Laboratory Results 02/04/17 04:42 02/05/17 09:36 02/04/17 02/05/17 02/06/17 05:59 05:59 05:59 Intake Total 1040 Balance 1040 PT 14.9 SEC (12.0-15.0) 02/03/17 13:05 INR 1.17 (0.83-1.16) H 02/03/17 13:05 - Physical Exam Constitutional: no apparent distress, appears nourished, not in pain Eyes: anicteric sclera, EOMI Ears, Nose, Mouth, Throat: hearing normal Respiratory: no respiratory distress Musculoskeletal: other (left hip with sig erythema - receeding from previous line, but still angry looking) Neurologic: AAOx3 Psychiatric: interacting appropriately, not anxious, not encephalopathic, thought process linear ICD10 Worksheet Patient Problems: Problems Problem Status Onset Cellulitis Acute Morbid obesity Acute Right medial tibial plateau fracture Acute
[2017-02-05] MEDS: VANCOMYCIN HCL/NORMAL SALINE 250 ML IV SCH (22:26)
[2017-02-05] MEDS: SERTRALINE HCL 50 MG TAB PO SCH (22:26)
[2017-02-05] MEDS: ATORVASTATIN CALCIUM 20 MG TAB PO SCH (22:26)
[2017-02-06 05:15] LABS: % IMMATURE GRANULYOCYTES 2.6 % (0.0-1.1); ABSOLUTE IMMATURE GRANULOCYTES 0.22 10^3/uL (0.00-0.10); ADD DIFF? NO; ADD MORPH? NO; ADD SCAN? NO; ATYPICAL LYMPHOCYTE FLAG 10 (0-99); FRAGMENT RBC FLAG 0 (0-99); HEMATOCRIT 31.3 % (38.0-47.0); LEFT SHIFT FLG 20 (0-99); LIPEMIA HEMOLYSIS FLAG 80 (0-99); MEAN CELL HEMOGLOBIN 30.2 pg (27.9-34.1); MEAN CELL HEMOGLOBIN CONCENTR. 31.9 g/dL (32.4-36.7); MEAN CELL VOLUME 94.6 fL (81.5-99.8); PLATELET CLUMPS FLAG 0 (0-99); PLATELET COUNT 261 10^3/uL (150-400); RED BLOOD CELL COUNT 3.31 10^6/uL (4.18-5.33); RED CELL DISTRIBUTION WIDTH 14.5 % (11.5-15.2)
[2017-02-06 05:42] LABS: ANION GAP 12 mEq/L (8-16); CARBON DIOXIDE 24 mEq/l (22-31); CHLORIDE 102 mEq/L (97-110); CREATININE 1.1 mg/dL (0.6-1.0); GLOMERULAR FILTRATION RATE 52; GLUCOSE 115 mg/dL (70-100); POTASSIUM 3.6 mEq/L (3.5-5.2); SODIUM 138 mEq/L (134-144)
[2017-02-06 08:55] VITALS: BP 103/54; PULSE 79; RESP 20; TEMP 97.9; O2SAT 91
[2017-02-06] MEDS: DOXYCYCLINE HYCLATE 100 MG CAP/TAB PO SCH (09:32)
[2017-02-06] MEDS: CHOLECALCIFEROL VIT D3 2,000 UNITS TAB/CAP PO SCH (09:32)
[2017-02-06] MEDS: ASPIRIN EC 81 MG TAB PO SCH (09:33)
[2017-02-06] MEDS: PIOGLITAZONE HCL 15 MG TAB PO SCH (09:33)
[2017-02-06] MEDS: ENOXAPARIN 60 MG/0.6 ML SYR SC SCH (09:34)
[2017-02-06] MEDS: LISINOPRIL/HCTZ 20/12.5MG 1 EA TAB PO SCH (09:34)
[2017-02-06] MEDS: TORSEMIDE 20 MG TAB PO SCH (09:34)
[2017-02-06] MEDS: VANCOMYCIN HCL/NORMAL SALINE 250 ML IV SCH (09:35)
--- NOTE | 2017-02-06 11:10 | PDIAF ---
- Diagnosis Diagnosis: cellulitis Code Status: Full Code - Medication Management Discharge Medications: Medications to Continue on Transfer Albuterol [Proventil Inhaler HFA (*)] 1 - 2 puffs IH Q4HRS PRN 11/23/16 [Last Taken 01/29/17] Aspirin EC [Aspirin EC 81 mg (*)] 81 mg PO DAILY 11/23/16 [Last Taken 02/03/17] Sertraline HCl [Zoloft 50mg (*)] 50 mg PO HS 11/23/16 [Last Taken 02/02/17] Simvastatin 40 mg PO HS 11/23/16 [Last Taken 02/02/17] Cholecalciferol (Vitamin D3) [Vitamin D3] 5,000 unit PO DAILY 02/03/17 [Last Taken 02/03/17] Cyclobenzaprine [Flexeril 10 MG (*)] 10 mg PO Q8HRS PRN 02/03/17 [Last Taken ] Lisinopril/Hctz 20/12.5MG [Zestoretic/Prinzide 20/12.5MG (*)] 2 ea PO DAILY [Last Taken 02/03/17] Ondansetron [Zofran Odt] 8 mg PO Q6HRS PRN 02/03/17 [Last Taken 02/03/17] Pioglitazone HCl [Actos] 30 mg PO DAILY 02/03/17 [Last Taken 02/03/17] Dicloxacillin Sodium [Dynapen 500 MG (*)] 500 mg PO Q6H 14 Days 02/06/17 [Last Taken Unknown] Doxycycline Hyclate [Vibramycin 100 MG (*)] 100 mg PO BID 14 Days 02/06/17 [ Last Taken Unknown] Fdc Antibiotics: Dicloxacillin and Doxycycline oral Candy Cutter Hand Antibiotic Stop Date: 02/20/17 Discharge Medications: Refer to the Discharge Home Medication list for PRN reason. - Orders Additional: Take Dicloxacillin 1hr before and 2 hrs after eating - Follow Up Care Current Providers and Referrals: RAMOS ROBLES [Other] - As per Instructions
--- NOTE | 2017-02-06 11:47 | GDS ---
[f rep st] DISCHARGE SUMMARY DISCHARGE DIAGNOSES: 1. Left hip cellulitis. 2. Recent tibial plateau fracture. 3. Morbid obesity. 4. Type 2 diabetes. 5. Hypertension. HISTORY: This is a 56-year-old female who was at [facility] rehabbing from a tibial pl ateau fracture that is nonoperative. She presented with left hip redness and pain. HOSPITAL COURSE: Patient was admitted and placed on IV vancomycin. Her white blood cell count impr radha as well as the redness receded and looked less angry. She was offered another day or so of IV antibiotics but she really wants to get back to rehab and thus would like to try oral antibiotics. This is reasonable. We will discharge her on doxycycline and dicloxacillin to cover both strep and staph. FOLLOWUP INSTRUCTIONS: She is instructed to follow up with [facility] doctor and return to the em ergency department if her cellulitis worsens. TIME SPENT: Greater than 30 minutes spent on discharge. /[id number]/MODL
== END 2017-02-06 15:20 | DRG 603 ==
LOC: EDUNIT# → OBSVTOIN 15:15 → F3E 15:30
PROVIDERS: ADMIT Internal Medicine; ATTEND Internal Medicine
DX: L03.116 Cellulitis of left lower limb (principal); S82.144D Nondisplaced bicondylar fracture of right tibia, subsequent encounter for closed fracture with routine healing; E66.01 Morbid (severe) obesity due to excess calories; Z68.44 Body mass index [BMI] 60.0-69.9, adult; E11.9 Type 2 diabetes mellitus without complications; I10 Essential (primary) hypertension; E78.5 Hyperlipidemia, unspecified; M79.7 Fibromyalgia; G47.33 Obstructive sleep apnea (adult) (pediatric); J45.909 Unspecified asthma, uncomplicated; K58.9 Irritable bowel syndrome, unspecified
CPT/HCPCS: 96365; 97162-GP; 97165-GO; J1650; J3370

== ENCOUNTER 2018-04-24 19:34 | Inpatient (IN) | payer OTHER ==
--- NOTE | 2018-04-24 19:37 | EDPHY ---
H & P Time Seen by Provider: 04/24/18 19:37 HPI/ROS: HPI CHIEF COMPLAINT: Unable to care for self at home. Multiple skin sores. HISTORY OF PRESENT ILLNESS: This is a 57-year-old female, morbidly obese, weighs over ?500 lbs, presents to the emergency room she states she has not been out of her house in over a year. She suffers from fibromyalgia, additionally states that she had a right leg fracture that required her to stay at a rehab center for prolonged period time. She is now at home. She has not been out of her house in a long time she finally had come to the emergency room today due to unable to care for self at home any further. She states that she has a 2 person full assist, however her father's unable to care for her at this time. She complains of extensive skin breakdown to her legs and thighs bilaterally. Past Medical History: Fibromyalgia, diabetes, on Lovenox, htn Past Surgical History: No recent surgical history Social History: Lives in a private residence. Family History: Noncontributory ROS REVIEW OF SYSTEMS: 10 Systems were reviewed and negative with the exception of the elements mentioned in the history of present illness. Exam Constitutional morbidly obese, triage nursing summary reviewed, vital signs reviewed, awake/alert. Eyes normal conjunctivae and sclera, EOMI, PERRLA. HENT normal inspection, atraumatic, moist mucus membranes, no epistaxis, neck supple/ no meningismus, no raccoon eyes. Respiratory clear to auscultation bilaterally, normal breath sounds, no respiratory distress, no wheezing. Cardiovascular rate normal, regular rhythm, no murmur, no edema, distal pulses normal. Gastrointestinal soft, non-tender, no rebound, no guarding, normal bowel sounds, no distension, no pulsatile mass. Genitourinary no CVA tenderness. Musculoskeletal no midline vertebral tenderness, full range of motion, no calf swelling, no tenderness of extremities, no meningismus, good pulses, neurovascularly intact. Skin skin exam I am unable to fully evaluate her back due to how morbidly obese she is, however does have skin excoriation and breakdown of the bilateral thighs, bilateral legs. There is weeping edema of her bilateral legs. Also weeping edema of her pannus fold, and yeast under her pannus fold. Neurologic awake, alert and oriented x 3, AAOx3, moves all 4 extremities equally, motor intact, sensory intact, CN II-XII intact, normal cerebellar, normal vision, normal speech. Psychiatric normal mood/affect. Heme/Lymph/Immune no lymphadenopathy. Differential Diagnosis: Includes but is not limited to in a particular order morbid obesity, diabetes, dehydration, electrolyte disturbance, extensive skin breakdown, skin wounds, yeast infection, failure to thrive Medical Decision Making: Plan for this patient IV establishment blood draw, patient need to be admitted the hospital she is unable to care for herself. Extensive skin breakdown, yeast. Re-evaluation: 2141: Patient need to be admitted the hospital service for failure to thrive, unable to care for self, yeast infection of her skin, and extensive skin sores. Source: Patient, EMS - Medical/Surgical History Hx Asthma: Yes Hx Chronic Respiratory Disease: No Hx Diabetes: Yes Hx Cardiac Disease: No Hx Renal Disease: No Hx Cirrhosis: No Hx Alcoholism: No Hx HIV/AIDS: No Hx Splenectomy or Spleen Trauma: No Other PMH: Fibromyalgia, asthma, dm t2. sleep apnea, R tib plateu fx, HTN - Social History Smoking Status: Never smoked Constitutional: Initial Vital Signs Temperature (C) 36.7 C 04/24/18 19:34 Heart Rate 80 04/24/18 19:34 Respiratory Rate 16 04/24/18 19:34 Blood Pressure 145/62 H 04/24/18 19:34 O2 Sat (%) 95 04/24/18 19:34 O2 Delivery Mode Room Air Allergies/Adverse Reactions: almond Allergy (Verified 02/03/17 12:48) apple Allergy (Verified 02/03/17 12:48) carrot Allergy (Verified 02/03/17 12:48) cephalexin Allergy (Verified 02/03/17 12:48) garlic Allergy (Verified 02/03/17 12:48) metformin Allergy (Verified 02/03/17 12:48) morphine Allergy (Verified 02/03/17 12:48) Pork/Porcine Containing Products Allergy (Verified 02/03/17 12:48) shellfish derived [shrimp] Allergy (Verified 02/03/17 14:59) sitagliptin phosphate [From Januvia] Allergy (Verified 02/03/17 12:48) squash Allergy (Verified 02/03/17 12:48) Sulfa (Sulfonamide Antibiotics) Allergy (Verified 02/03/17 12:48) tomato Allergy (Verified 02/03/17 12:48) tree nut [Nuts] Allergy (Verified 02/03/17 14:59) green portillo Allergy (Uncoded 11/23/16 10:38) salmon Allergy (Uncoded 11/23/16 10:38) Home Medications: Medication Instructions Recorded Albuterol [Proventil Inhaler HFA 1 - 2 puffs IH Q4HRS PRN 11/23/16 (*)] Aspirin EC [Aspirin EC 81 mg (*)] 81 mg PO DAILY 11/23/16 Sertraline HCl [Zoloft 50mg (*)] 50 mg PO HS 11/23/16 Cholecalciferol (Vitamin D3) 5,000 unit PO DAILY 02/03/17 [Vitamin D3] Cyclobenzaprine [Flexeril 10 MG 10 mg PO Q8HRS PRN 02/03/17 (*)] Ondansetron [Zofran Odt] 8 mg PO Q6HRS PRN 02/03/17 Doxycycline Hyclate [Vibramycin 100 mg PO BID 14 Days capsule 02/06/17 100 MG (*)] Atorvastatin Calcium [Lipitor 20 20 mg PO HS 04/24/18 mg (*)] Enoxaparin [Lovenox 40 MG (*)] 40 mg SQ DAILY 04/24/18 Lisinopril [Zestril 2.5 mg (*)] 2.5 mg PO DAILY 04/24/18 Loratadine 10 mg PO DAILY 04/24/18 Pioglitazone HCl [Actos 15mg (*)] 15 mg PO DAILY 04/24/18 Tylenol ES 500 mg (*) 500 mg PO Q8H PRN 04/24/18 Medical Decision Making - Data Points Laboratory Results: Laboratory Results 04/24/18 20:05 04/24/18 20:05 Medications Given: Acetaminophen (Tylenol) 650 mg PO Q4HRS PRN PRN Reason: Pain, Mild/Fever, Can Take PO Stop: 10/21/18 22:19 Last Admin: 04/24/18 22:56 Dose: 650 mg Aspirin Buffered (Aspirin Ec) 81 mg PO DAILY [facility] Stop: 10/22/18 08:59 Last Admin: 04/25/18 09:34 Dose: 81 mg Cetirizine HCl (Zyrtec) 10 mg PO DAILY [facility] Stop: 10/22/18 08:59 Last Admin: 04/25/18 09:34 Dose: 10 mg Cholecalciferol (Vitamin D) 5,000 units PO DAILY [facility] Stop: 10/22/18 08:59 Last Admin: 04/25/18 09:34 Dose: 5,000 units Cyclobenzaprine HCl (Flexeril) 10 mg PO Q8HRS PRN PRN Reason: Muscle spasm Stop: 10/21/18 23:23 Last Admin: 04/25/18 02:34 Dose: 10 mg Doxycycline Hyclate (Doxycycline Hyclate) 100 mg PO BID CATHY PRN Reason: Protocol Stop: 05/25/18 08:59 Last Admin: 04/25/18 09:34 Dose: 100 mg Enoxaparin Sodium (Lovenox) 60 mg SC Q12 [facility] Stop: 10/22/18 08:59 Last Admin: 04/25/18 09:35 Dose: 60 mg Lisinopril (Zestril) 2.5 mg PO DAILY [facility] Stop: 10/22/18 08:59 Last Admin: 04/25/18 09:34 Dose: 2.5 mg Pioglitazone HCl (Actos) 15 mg PO DAILY [facility] Stop: 10/22/18 08:59 Last Admin: 04/25/18 09:34 Dose: 15 mg Discontinued Medications Furosemide (Lasix) 40 mg PO DAILY [facility] Stop: 10/22/18 08:59 Last Admin: 04/25/18 09:35 Dose: 40 mg Sodium Chloride (Ns) 1,000 mls @ 0 mls/hr IV ONCE ONE PRN Reason: Wide Open Stop: 04/24/18 21:25 Last Admin: 04/24/18 21:41 Dose: 1,000 mls Departure - Departure Disposition: [facility] Acute Clinical Impression: Morbid obesity, Lymphedema, Skin excoriation Condition: Serious
[2018-04-24 20:13] LABS: PLATELET COUNT 215 10^3/uL (150-400)
[2018-04-24] MEDS ORDERED: NS 1,000 ML IV ONE (21:24)
[2018-04-24] MEDS ORDERED: ONDANSETRON 4 MG/2 ML VIAL IVP PRN (22:20)
[2018-04-24] MEDS: ACETAMINOPHEN 325 MG TAB PO PRN (22:56)
[2018-04-24] MEDS ORDERED: ALBUTEROL 60 PUFFS/8 GM MDI IH PRN (23:24)
[2018-04-24] MEDS ORDERED: CYCLOBENZAPRINE 10 MG TAB PO PRN (23:24)
[2018-04-24] MEDS ORDERED: D50W 25 GM/50 ML VIAL IVP PRN (23:29)
--- NOTE | 2018-04-25 00:40 | PDGENHP ---
History and Physical - Chief Complaint Inability to care for self - History of Present Illness 57 yo morbidly obese F with DM and HTN presents with concerns about her ability to care for herself. The patient tells me her issues began with a tib/fib fracture suffered in November of 2016. After that incident she spent 4 months in rehabilitation. She was doing reasonably well at home with the help of her father and home health services until 1 month ago when she suffered a spider bite to her R foot. This very much limited her mobility and she has been essentially bedbound since. She does have home health services but tells me she can no longer achieve transfers with a one person assist. As a result, self- care has been very difficult as of late. In addition, extensive swelling, I suspect due to lymphedema, has led to numerous skin issues. She has constant weeping from several skin folds and fungal infections as a result. Her evaluation in the ED did not reveal any acute pathology aside from that described above. Case discussed with ED physician Dr. Olivas; records reviewed and summarized above. History Information - Allergies/Home Medication List Allergies/Adverse Reactions: almond Allergy (Verified 02/03/17 12:48) apple Allergy (Verified 02/03/17 12:48) carrot Allergy (Verified 02/03/17 12:48) cephalexin Allergy (Verified 02/03/17 12:48) garlic Allergy (Verified 02/03/17 12:48) metformin Allergy (Verified 02/03/17 12:48) morphine Allergy (Verified 02/03/17 12:48) Pork/Porcine Containing Products Allergy (Verified 02/03/17 12:48) shellfish derived [shrimp] Allergy (Verified 02/03/17 14:59) sitagliptin phosphate [From Januvia] Allergy (Verified 02/03/17 12:48) squash Allergy (Verified 02/03/17 12:48) Sulfa (Sulfonamide Antibiotics) Allergy (Verified 02/03/17 12:48) tomato Allergy (Verified 02/03/17 12:48) tree nut [Nuts] Allergy (Verified 02/03/17 14:59) green portillo Allergy (Uncoded 11/23/16 10:38) salmon Allergy (Uncoded 11/23/16 10:38) Home Medications: Albuterol [Proventil Inhaler HFA (*)] 1 - 2 puffs IH Q4HRS PRN 11/23/16 [Last Taken 04/23/18] Aspirin EC [Aspirin EC 81 mg (*)] 81 mg PO DAILY 11/23/16 [Last Taken 04/23/18] Sertraline HCl [Zoloft 50mg (*)] 50 mg PO HS 11/23/16 [Last Taken 04/23/18] Cholecalciferol (Vitamin D3) [Vitamin D3] 5,000 unit PO DAILY 02/03/17 [Last Taken 04/23/18] Cyclobenzaprine [Flexeril 10 MG (*)] 10 mg PO Q8HRS PRN 02/03/17 [Last Taken 01/01] Ondansetron [Zofran Odt] 8 mg PO Q6HRS PRN 02/03/17 [Last Taken 1 Year Ago ~01/31] Atorvastatin Calcium [Lipitor 20 mg (*)] 20 mg PO HS 04/24/18 [Last Taken ] Enoxaparin [Lovenox 40 MG (*)] 40 mg SQ DAILY 04/24/18 [Last Taken 04/23/18] Lisinopril [Zestril 2.5 mg (*)] 2.5 mg PO DAILY 04/24/18 [Last Taken 04/23/18] Loratadine 10 mg PO DAILY 04/24/18 [Last Taken 04/23/18] Pioglitazone HCl [Actos 15mg (*)] 15 mg PO DAILY 04/24/18 [Last Taken 04/23/18] Tylenol ES 500 mg (*) 500 mg PO Q8H PRN 04/24/18 [Last Taken 04/24/18 12:00] I have personally reviewed and updated: family history, medical history - Past Medical History diabetes type 2, hypertension - Surgical History Reports: no pertinent surgical hx - Family History Additional family history: Father healthy at bedside - Social History Smoking Status: Never smoked Review of Systems Review of Systems: ROS: 10pt was reviewed & negative except for what was stated in HPI & below Physical Exam Physical Exam: Temp Pulse Resp BP Pulse Ox 36.6 C 75 16 124/57 H 92 04/24/18 23:55 04/24/18 23:55 04/24/18 23:55 04/24/18 23:55 04/24/18 23:55 Constitutional: not in pain, obese Eyes: PERRL, EOMI Ears, Nose, Mouth, Throat: moist mucous membranes, no oral mucosal ulcers Cardiovascular: regular rate and rhythym, no murmur, rub, or gallop Respiratory: no respiratory distress, clear to auscultation Gastrointestinal: normoactive bowel sounds, soft, non-tender abdomen Skin: warm, other (Extensive swelling throughout sacrum, flanks, and lower extremities. Erythema and weeping noted in several areas.) Neurologic: AAOx3, CN II-XII Intact Psychiatric: interacting appropriately, not anxious Lab Data & Imaging Review 04/24/18 20:05 04/24/18 20:05 WBC 7.01 10^3/uL (3.80-9.50) 04/24/18 20:05 RBC 3.49 10^6/uL (4.18-5.33) L 04/24/18 20:05 Hgb 10.8 g/dL (12.6-16.3) L 04/24/18 20:05 Hct 33.2 % (38.0-47.0) L 04/24/18 20:05 MCV 95.1 fL (81.5-99.8) 04/24/18 20:05 MCH 30.9 pg (27.9-34.1) 04/24/18 20:05 MCHC 32.5 g/dL (32.4-36.7) 04/24/18 20:05 RDW 15.0 % (11.5-15.2) 04/24/18 20:05 Plt Count 215 10^3/uL (150-400) 04/24/18 20:05 MPV 10.3 fL (8.7-11.7) 04/24/18 20:05 Neut % (Auto) 72.0 % (39.3-74.2) 04/24/18 20:05 Lymph % (Auto) 16.0 % (15.0-45.0) 04/24/18 20:05 [place] % (Auto) 7.4 % (4.5-13.0) 04/24/18 20:05 Eos % (Auto) 3.0 % (0.6-7.6) 04/24/18 20:05 Baso % (Auto) 0.6 % (0.3-1.7) 04/24/18 20:05 Nucleat RBC Rel Count 0.0 % (0.0-0.2) 04/24/18 20:05 Absolute Neuts (auto) 5.05 10^3/uL (1.70-6.50) 04/24/18 20:05 Absolute Lymphs (auto) 1.12 10^3/uL (1.00-3.00) 04/24/18 20:05 Absolute Monos (auto) 0.52 10^3/uL (0.30-0.80) 04/24/18 20:05 Absolute Eos (auto) 0.21 10^3/uL (0.03-0.40) 04/24/18 20:05 Absolute Basos (auto) 0.04 10^3/uL (0.02-0.10) 04/24/18 20:05 Absolute Nucleated RBC 0.00 10^3/uL (0-0.01) 04/24/18 20:05 Immature Gran % 1.0 % (0.0-1.1) 04/24/18 20:05 Immature Gran # 0.07 10^3/uL (0.00-0.10) 04/24/18 20:05 Sodium 136 mEq/L (135-145) 04/24/18 20:05 Potassium 4.2 mEq/L (3.3-5.0) 04/24/18 20:05 Chloride 107 mEq/L (97-110) 04/24/18 20:05 Carbon Dioxide 21 mEq/l (22-31) L 04/24/18 20:05 Anion Gap 8 mEq/L (6-14) 04/24/18 20:05 BUN 21 mg/dL (7-23) 04/24/18 20:05 Creatinine 1.3 mg/dL (0.6-1.0) H 04/24/18 20:05 Estimated GFR 43 04/24/18 20:05 Glucose 113 mg/dL (70-100) H 04/24/18 20:05 Calcium 8.7 mg/dL (8.5-10.4) 04/24/18 20:05 Assessment & Plan Assessment: 57 yo morbidly obese F presents with inability to care for herself at home. Plan: 1. Morbid obesity - This is the underlying etiology for most of her issues at this time (inability to ambulate, lymphedema, skin breakdown, HTN, DM). For the last month she has been struggling with self care as she can no longer transfer with a one person assist. She would certainly benefit from a discussion about bariatric surgery when able. - PT/OT evaluations 2. Edema, skin breakdown, intertrigo - She has an impressive degree of edema and I suspect undiagnosed lymphedema. This in combination with her morbid obesity has made skin care very challenging. She takes furosemide 20 mg daily and applies mupirocin to areas of redness on her flanks. - Will increase furosemide to 40 mg daily - Continue mupirocin BID - Wound care consult placed to address additional intertrigo and consider feasibility of lymphedema wraps 3. DM - She takes pioglitazone as an outpatient with reasonable control. - Continue pioglitazone - Monitor BG ACHS; D50 IV PRN for hypoglycemia 4. HTN - Continue home medications 5. Normocytic anemia - Stable from previous values, no signs of acute bleeding. - Will check ferritin, B12 6. CKD, Stage III - Creatinine 1.3 on admission, relatively stable from previous values. - Avoid nephrotoxic medications Diet - Regular Code - Full Ppx - LMWH Dispo - Admit under observation status
[2018-04-25 08:09] LABS: PLATELET COUNT 201 10^3/uL (150-400)
[2018-04-25] MEDS ORDERED: FUROSEMIDE 20 MG TAB PO SCH (09:00)
[2018-04-25] MEDS ORDERED: FUROSEMIDE 40 MG TAB PO SCH (09:00)
[2018-04-25] MEDS: CETIRIZINE 10 MG TAB PO SCH (09:34)
[2018-04-25] MEDS: PIOGLITAZONE HCL 15 MG TAB PO SCH (09:34)
[2018-04-25] MEDS: LISINOPRIL 2.5 MG TAB PO SCH (09:34)
[2018-04-25] MEDS: CHOLECALCIFEROL VIT D3 2,000 UNITS TAB/CAP PO SCH (09:34)
[2018-04-25] MEDS: DOXYCYCLINE HYCLATE 100 MG CAP/TAB PO SCH ×2 (09:34→21:04)
[2018-04-25] MEDS: ASPIRIN EC 81 MG TAB PO SCH (09:34)
[2018-04-25] MEDS: ENOXAPARIN 60 MG/0.6 ML SYR SC SCH ×2 (09:35→21:04)
--- NOTE | 2018-04-25 12:16 | ASMTCMCOM ---
CM Note CM Note Notes: Pts case discussed in tx rounds. Pt is a 57 y/p female admitted for obesity, failure to thrive and skin lesions. Pt has not left her home in a year. Therapies have been ordered and awaiting recommendations. Wound care is involved. Pt has an elderly father that is involved. Needs are TBD at this time. CM to follow. Plan: TBD Date Signed: 04/25/2018 12:16 PM Electronically Signed By:CURTIS Jefferson
[2018-04-25] MEDS ORDERED: PROMETHAZINE HCL 25 MG/ML INJ IVP PRN (12:55)
[2018-04-25] MEDS: ONDANSETRON DISINTEGRATING 4 MG TAB PO PRN (13:50)
[2018-04-25] MEDS: FUROSEMIDE 40 MG/4 ML VIAL IVP SCH (14:38)
[2018-04-25] MEDS: MUPIROCIN 2% 22 GM OINT TP SCH ×2 (14:45→21:04)
--- NOTE | 2018-04-25 16:00 | HOSPPROG ---
Hospitalist Progress Note Assessment/Plan: * Massive volume overload - I suspect she has >50 pounds of fluid retained -IV lasix * Super morbid obesity -no longer able to ambulate, or even transfer self - worsened by recent spider bite -PT/OT * ROBLES/CPAP * Decub (POA) -per wound RN * DM II -actos * CKD - baseline creatinine 1.3 Subjective: c/o severe edema Objective: Vital Signs Temp Pulse Resp BP Pulse Ox 36.5 C 74 19 112/57 L 96 04/25/18 15:35 04/25/18 15:35 04/25/18 15:35 04/25/18 15:35 04/25/18 15:35 Laboratory Results 04/25/18 08:02 04/25/18 08:02 04/24/18 04/25/18 04/26/18 05:59 05:59 05:59 Intake Total 900 Output Total 425 Balance 475 - Physical Exam Constitutional: no apparent distress, appears nourished, not in pain Cardiovascular: regular rate and rhythym, no murmur, rub, or gallop, edema (4+++ ) Respiratory: no respiratory distress, no rales or rhonchi, clear to auscultation Gastrointestinal: normoactive bowel sounds, soft, non-tender abdomen, no palpable masses Skin: other (tense edema with peau orange on lower abd wall and flanks Spider bite looks okay, previous area of skin breakdown, now just erythema) Neurologic: AAOx3, sensation intact bilaterally Psychiatric: interacting appropriately, not anxious, not encephalopathic, thought process linear ICD10 Worksheet Patient Problems: Problems Problem Status Onset Right medial tibial plateau fracture Acute Morbid obesity Acute Cellulitis Acute Lymphedema Acute Skin excoriation Acute
--- NOTE | 2018-04-25 16:37 | PDMN ---
Medical Necessity Medical necessity: Change to inpt as of 04/25/18 @ 1255. Pt meets inpt criteria per MD order and Systemic or Infectious Condition GRG. 57 y/o upgraded to inpt status for ongoing eval/treatment of massive volume overload requiring scheduled IV Lasix complicated by comorbid obesity (BMI 95.7) making mobility very difficult and recent spider bite to R foot. Other comorbid conditions include DM II, CKD, skin breakdown, Est LOS>2MN for ongoing eval/management of above.
--- NOTE | 2018-04-25 16:54 | ASMTCMCOM ---
CM Note CM Note Notes: Elaine from [facility] reports that pt is current w/ them. CM sent updates to [facility] on allscripts. Date Signed: 04/25/2018 04:28 PM Electronically Signed By:CURTIS Jefferson
--- NOTE | 2018-04-25 18:34 | WOCRNPDOC ---
DAVID Advanced Assessment Note - Skin Integrity Problem, Advanced Assess Left Lateral Ischial Tuberosity Pressure Injury Dressing Type: Open to Air Closure Description: Not Approximated Integumentary Issue Intervention: Dressing Applied, Hydrogel Applied Sherry Wound Tissue: Blanching, Intact, Thin, Painful/Tender Wound Bed Color: Powers Wound Bed Constitution: Red/Powers - Non Granular Tissue Wound Edges: Attached, Well Defined Site Measurement - Head-to-Toe Length X Width X Depth (cm): 2.2x1.4x0.2 Pressure Injury Stage: Stage 3 Pressure Injury Present on Admit: Yes Skin Integrity Problem Comment: Patient rolled to her right side with assist from multiple RNs and adult health clinical nurse specialist utilizing the lift sheet. Patient noted to be incontinent of urine. Urine wiped from skin with wipes. There are 2 neighboring wounds, both open and full thickness. The patient notes considerable shearing when transferring due to her limitations with mobility and body habitus. She also informs me that she has been largely bed bound for about the past month. The presence of moisture, shear, and immobility suggest that these wounds are likely pressure injuries, Stage 3, present on admission. Wound beds cleaned with NS and gauze. Wound gel applied to wound beds. Wounds covered, together, with Mepilex sacral dressing. Wound care will round again early next week. Left Medial Ischial Tuberosity Pressure Injury Dressing Type: Open to Air Closure Description: Not Approximated Exudate Amount: Minimal Exudate Color: Red Exudate Characteristic(s): Bloody Integumentary Issue Intervention: Dressing Applied, Hydrogel Applied Sherry Wound Tissue: Blanching, Intact, Painful/Tender Wound Bed Color: Red Wound Bed Constitution: Red/Powers - Non Granular Tissue Wound Edges: Attached, Well Defined Site Measurement - Head-to-Toe Length X Width X Depth (cm): 4.5x4x0.2 Pressure Injury Stage: Stage 3 Pressure Injury Present on Admit: Yes Right Medial Proximal Ischial Tuberosity Pressure Injury Dressing Type: Open to Air Closure Description: Not Approximated Exudate Amount: Minimal Exudate Color: Red Exudate Characteristic(s): Bloody Integumentary Issue Intervention: Dressing Applied, Hydrogel Applied Sherry Wound Tissue: Blanching, Intact, Painful/Tender Wound Bed Color: Red Wound Bed Constitution: Red/Powers - Non Granular Tissue Wound Edges: Attached, Well Defined Site Measurement - Head-to-Toe Length X Width X Depth (cm): 2.3x3.2x0.2 Pressure Injury Stage: Stage 3 Pressure Injury Present on Admit: Yes Skin Integrity Problem Comment: Patient rolled to her right side with assist from several RNs and adult health clinical nurse specialist. 5 distinct full thickness wounds noted. Wound beds cleaned with NS and gauze. Hydrogel applied to wounds and covered, together, with Mepilex sacral dressing. Wound care will round again early next week. Right Medial Distal Ischial Tuberosity Pressure Injury Dressing Type: Open to Air Closure Description: Not Approximated Integumentary Issue Intervention: Dressing Applied, Hydrogel Applied Sherry Wound Tissue: Macerated, Intact, Painful/Tender Wound Bed Color: Powers Wound Bed Constitution: Red/Powers - Non Granular Tissue Wound Edges: Attached, Well Defined Site Measurement - Head-to-Toe Length X Width X Depth (cm): 0.6x1x0.2 Pressure Injury Stage: Stage 3 Pressure Injury Present on Admit: Yes Right Lateral Proximal Ischial Tuberosity Pressure Injury Dressing Type: Open to Air Closure Description: Not Approximated Integumentary Issue Intervention: Dressing Applied, Hydrogel Applied Sherry Wound Tissue: Intact, Painful/Tender Wound Bed Color: Powers Wound Bed Constitution: Red/Powers - Non Granular Tissue, Adhered Slough Wound Edges: Well Defined Site Measurement - Head-to-Toe Length X Width X Depth (cm): 2.8x1.4x0.2 Pressure Injury Stage: Stage 3 Pressure Injury Present on Admit: Yes Right Lateral Distal Ischial Tuberosity Pressure Injury Dressing Type: Open to Air Closure Description: Not Approximated Integumentary Issue Intervention: Dressing Applied, Hydrogel Applied Sherry Wound Tissue: Intact, Painful/Tender Wound Bed Color: Yellow Wound Bed Constitution: Adhered Slough Wound Edges: Attached, Well Defined Site Measurement - Head-to-Toe Length X Width X Depth (cm): 1x1.2x0.2 Pressure Injury Stage: Stage 3 Pressure Injury Present on Admit: Yes Right Lateral Ischial Tuberosity Pressure Injury Dressing Type: Open to Air Integumentary Issue Intervention: Dressing Applied, Hydrogel Applied Sherry Wound Tissue: Intact, Painful/Tender Wound Bed Color: Powers Wound Bed Constitution: Red/Powers - Non Granular Tissue Wound Edges: Attached, Well Defined Site Measurement - Head-to-Toe Length X Width X Depth (cm): 1.9x1.5x0.2 Pressure Injury Stage: Stage 3 Pressure Injury Present on Admit: Yes
[2018-04-25] MEDS: ATORVASTATIN CALCIUM 20 MG TAB PO SCH (21:04)
[2018-04-25] MEDS: SERTRALINE HCL 50 MG TAB PO SCH (21:04)
[2018-04-26] MEDS: ONDANSETRON DISINTEGRATING 4 MG TAB PO PRN (00:17)
[2018-04-26] MEDS: FUROSEMIDE 40 MG/4 ML VIAL IVP SCH ×2 (11:29→15:48)
[2018-04-26] MEDS: ENOXAPARIN 60 MG/0.6 ML SYR SC SCH ×2 (11:31→20:28)
[2018-04-26] MEDS: DOXYCYCLINE HYCLATE 100 MG CAP/TAB PO SCH ×2 (11:33→20:28)
[2018-04-26] MEDS: PIOGLITAZONE HCL 15 MG TAB PO SCH (11:33)
[2018-04-26] MEDS: ASPIRIN EC 81 MG TAB PO SCH (11:33)
[2018-04-26] MEDS: LISINOPRIL 2.5 MG TAB PO SCH (11:34)
[2018-04-26] MEDS: CHOLECALCIFEROL VIT D3 2,000 UNITS TAB/CAP PO SCH (11:34)
[2018-04-26] MEDS: CETIRIZINE 10 MG TAB PO SCH (11:34)
[2018-04-26] MEDS: MUPIROCIN 2% 22 GM OINT TP SCH ×2 (11:35→20:29)
--- NOTE | 2018-04-26 16:09 | HOSPPROG ---
Hospitalist Progress Note Assessment/Plan: * Massive volume overload -IV lasix - good diuresis * Super morbid obesity -no longer able to ambulate, or even transfer self - worsened by recent spider bite -PT/OT * ROBLES/CPAP * Decub (POA) - Stage 3 -per wound RN * DM II -actos * CKD - baseline creatinine 1.3 Subjective: Feels much better with even a little fluid off, can move her legs and feet better Objective: Vital Signs Temp Pulse Resp BP Pulse Ox 36.7 C 80 18 105/52 L 90 L 04/26/18 12:00 04/26/18 12:00 04/26/18 12:00 04/26/18 12:00 04/26/18 12:00 Laboratory Results 04/26/18 05:40 04/25/18 04/26/18 04/27/18 05:59 05:59 05:59 Output Total 2300 Balance -2300 - Physical Exam Constitutional: no apparent distress, appears nourished, not in pain Cardiovascular: regular rate and rhythym, no murmur, rub, or gallop Respiratory: no respiratory distress, no rales or rhonchi, clear to auscultation Gastrointestinal: normoactive bowel sounds, soft, non-tender abdomen, no palpable masses Skin: no rashes or abrasions, no fluctuance, no induration Neurologic: AAOx3, sensation intact bilaterally Psychiatric: interacting appropriately, not anxious, not encephalopathic, thought process linear ICD10 Worksheet Patient Problems: Problems Problem Status Onset Right medial tibial plateau fracture Acute Morbid obesity Acute Cellulitis Acute Lymphedema Acute Skin excoriation Acute
[2018-04-26] MEDS: SERTRALINE HCL 50 MG TAB PO SCH (20:28)
[2018-04-26] MEDS: ATORVASTATIN CALCIUM 20 MG TAB PO SCH (20:28)
[2018-04-26] MEDS: HYDROCORTISONE 1% CREAM TP SCH (20:29)
[2018-04-26] MEDS: NYSTATIN POWDER 15 GM BTL TP SCH (23:48)
[2018-04-27] MEDS ORDERED: D50W 25 GM/50 ML SYR IVP PRN (09:03)
[2018-04-27] MEDS: FUROSEMIDE 40 MG/4 ML VIAL IVP SCH ×2 (12:10→15:26)
[2018-04-27] MEDS: ENOXAPARIN 60 MG/0.6 ML SYR SC SCH ×2 (12:11→21:03)
[2018-04-27] MEDS: CHOLECALCIFEROL VIT D3 2,000 UNITS TAB/CAP PO SCH (12:12)
[2018-04-27] MEDS: ACETAMINOPHEN 325 MG TAB PO PRN ×2 (12:12→15:27)
[2018-04-27] MEDS: ASPIRIN EC 81 MG TAB PO SCH (12:14)
[2018-04-27] MEDS: LISINOPRIL 2.5 MG TAB PO SCH (12:14)
[2018-04-27] MEDS: NYSTATIN POWDER 15 GM BTL TP SCH ×2 (12:15→17:06)
[2018-04-27] MEDS: MUPIROCIN 2% 22 GM OINT TP SCH ×2 (12:15→21:05)
[2018-04-27] MEDS: CETIRIZINE 10 MG TAB PO SCH (12:15)
[2018-04-27] MEDS: DOXYCYCLINE HYCLATE 100 MG CAP/TAB PO SCH ×2 (12:15→21:03)
[2018-04-27] MEDS: HYDROCORTISONE 1% CREAM TP SCH ×2 (12:15→21:05)
[2018-04-27] MEDS: INSULIN REGULAR HUMAN 100 UNIT/ML UNIT SC SCH ×2 (12:16→18:25)
--- NOTE | 2018-04-27 13:33 | ASMTCMCOM ---
CM Note CM Note Notes: Patient discussed during rounds. Patient shares [facility], she states bedsores on legs are limiting factor. We discussed discharge plan, patient would like to go to [facility], she has been at this facility in the past and would like to work with the PT team. CM sent referral to [facility]. Patient has been accepted by [facility] if needed. Patient could discharge in a day or two, pending workup and diuresis . CM to follow. Current Discharge Plan: Pending SNF response, likely in 1-2 days. Date Signed: 04/27/2018 01:33 PM Electronically Signed By:Maggy Roberts
--- NOTE | 2018-04-27 13:50 | ECHO ---
[email or web address] [address] [address] Main: [phone] Fax: Transthoracic Echocardiogram Name: ALEKS BANKS MR#: [id number] Study Date: 04/27/2018 Study Time: 10:07 AM Date of : 1960 Age: 57 year(s) Height: 152.4 cm (60 in.) Weight: 256.74 kg (566 lb.) BSA: 2.9 m2 Gender: Female Examination: Echo Indication: CHF Image Quality: Technically Difficult Contrast: Requested by: Melissa Yepez BP: / Heart Rate: Rhythm: Indication: CHF Procedure Staff Recreational Assistant: Mary Nur RDCS Reading Physician: Jerome Markham MD Requesting Provider: Conclusions: Normal size left ventricle. Normal global systolic LV function. EF is 65 %. Normal diastolic LV function. The left atrium is mildly dilated. Mild aortic cusp calcification is noted. Mild tricuspid regurgitation is present. The pulmonary artery pressure is moderately increased. RVSP is 56-61mmHG. Measurements: Chambers Valvular Assessment AV/MV Valvular Assessment TV/PV Normal Normal Normal Name Value Range Name Value Range Name Value Range Ao Lauren (MM): 3.1 cm (2.2 cm-3.7 AV Vmax: 2.05 m/s (1 m/s-1.7 TR Vmax: 3.56 mm/s ( - ) cm) m/s) TR PGmax: 51 mmHg ( - ) IVSd (2D): 1.0 cm (0.6 cm-1.1 AV meanP mmHg ( - ) syst. PAP: 61 mmHg ( - ) cm) MV E Vmax: 1.34 m/s ( - ) LVDd (2D): 5.6 cm (3.9 cm-5.3 MV A Vmax: 0.83 m/s ( - ) cm) MV E/A: 1.61 ( - ) LVDs (2D): 3.6 cm (2.1 cm-4 cm) LVPWd (2D): 0.8 cm ( - ) LVEF (2D): 65 (>=54 %) Continued Measurements: Chambers Valvular Assessment AV/MV Valvular Assessment TV/PV Name Value Name Value Name Value Patient: ALEKS BANKS Study Date: 04/27/2018 Page 1 of 2 10:07 AM LADs: 4.0 cm MV E' Septal: 0.10 m/s CVP (est.): 10 mmHg LADs Lon.2 cm MV E/E' Septal: 13.90 LA Area: 29.2 cm2 MV E/E' Lateral: 8.80 LA Volume: 108 ml LA Volume Index: 37.2 ml/m2 Findings: Left Ventricle: Normal size left ventricle. No LV hypertrophy. Normal global systolic LV function. EF is 65 %. Normal diastolic LV function. Right Ventricle: Normal size right ventricle. Left Atrium: The left atrium is mildly dilated. Right Atrium: The right atrium is borderline dilated. Mitral Valve: The mitral valve is normal in appearance and function. Aortic Valve: Mild aortic cusp calcification is noted. The aortic valve is tri-leaflet and functions normally. Tricuspid Valve: The tricuspid valve is normal in appearance and function. Mild tricuspid regurgitation is present. The pulmonary artery pressure is moderately increased. RVSP is 56-61mmHG. Pulmonic Valve: Pulmonary valve not well visualized. Aorta: The aorta is normal. Pericardium: No pericardial effusion. (No Signature Object) Patient: ALEKS BANKS Study Date: 04/27/2018 Page 2 of 2 10:07 AM [id number]
[2018-04-27] MEDS: PIOGLITAZONE HCL 15 MG TAB PO SCH (15:26)
--- NOTE | 2018-04-27 16:57 | HOSPPROG ---
Hospitalist Progress Note Assessment/Plan: * Acute on chronic diastolic CHF, also pulmonary HTN/COR pulmonale -IV lasix - good diuresis * Super morbid obesity -no longer able to ambulate, or even transfer self -worsened by edema and recent spider bite -PT/OT -consult N[facility] Celaya to explore psych barriers to weight loss * ROBLES/CPAP - due to obesity * Decub (POA) - Stage 3 -per wound RN * DM II -DC actos due to edema -try glipizide -concern for metformin given creatinine elevation, although still may be a better option * CKD - baseline creatinine 1.3 Subjective: Feels much better, noticible better movement with fluid off Objective: Vital Signs Temp Pulse Resp BP Pulse Ox 36.3 C 70 18 129/51 H 90 L 04/27/18 16:00 04/27/18 16:00 04/27/18 16:00 04/27/18 16:00 04/27/18 16:00 Laboratory Results 04/27/18 05:30 04/26/18 04/27/18 04/28/18 05:59 05:59 05:59 Intake Total 250 Output Total 2300 2069 1100 Balance -2300 -1820 -1100 ECHO - pulmonary HTN, EF ok CXR viewed, my personal interpretation is - CHF - Physical Exam Constitutional: no apparent distress, appears nourished, not in pain Cardiovascular: regular rate and rhythym, no murmur, rub, or gallop, edema (4+) Respiratory: no respiratory distress, no rales or rhonchi, clear to auscultation Gastrointestinal: normoactive bowel sounds, soft, non-tender abdomen, no palpable masses Skin: warm, induration (due to edema, peau d'orange), pressure ulcer, No mottled , No erythema, No fluctuance, No rash Neurologic: AAOx3, sensation intact bilaterally Psychiatric: interacting appropriately, not anxious, not encephalopathic, thought process linear ICD10 Worksheet Patient Problems: Problems Problem Status Onset Right medial tibial plateau fracture Acute Morbid obesity Acute Cellulitis Acute Lymphedema Acute Skin excoriation Acute
[2018-04-27] MEDS: ATORVASTATIN CALCIUM 20 MG TAB PO SCH (21:03)
[2018-04-27] MEDS: SERTRALINE HCL 50 MG TAB PO SCH (21:04)
[2018-04-28] MEDS: INSULIN REGULAR HUMAN 100 UNIT/ML UNIT SC SCH ×5 (00:28→21:43)
[2018-04-28 05:21] LABS: PLATELET COUNT 214 10^3/uL (150-400)
[2018-04-28] MEDS: NYSTATIN POWDER 15 GM BTL TP SCH ×4 (06:24→21:44)
[2018-04-28] MEDS: CHOLECALCIFEROL VIT D3 2,000 UNITS TAB/CAP PO SCH (08:20)
[2018-04-28] MEDS: CETIRIZINE 10 MG TAB PO SCH (08:20)
[2018-04-28] MEDS: LISINOPRIL 2.5 MG TAB PO SCH (08:21)
[2018-04-28] MEDS: glipiZIDE 5 MG TAB PO SCH (08:21)
[2018-04-28] MEDS: ACETAMINOPHEN 325 MG TAB PO PRN (08:21)
[2018-04-28] MEDS: ASPIRIN EC 81 MG TAB PO SCH (08:21)
[2018-04-28] MEDS: DOXYCYCLINE HYCLATE 100 MG CAP/TAB PO SCH ×2 (08:21→21:42)
[2018-04-28] MEDS: ENOXAPARIN 60 MG/0.6 ML SYR SC SCH ×2 (08:22→21:41)
[2018-04-28] MEDS: FUROSEMIDE 40 MG/4 ML VIAL IVP SCH ×2 (08:22→14:02)
[2018-04-28] MEDS: HYDROCORTISONE 1% CREAM TP SCH ×2 (08:31→21:42)
[2018-04-28] MEDS: MUPIROCIN 2% 22 GM OINT TP SCH ×2 (08:35→21:43)
[2018-04-28] MEDS ORDERED: MAGNESIUM HYDROXIDE 30 ML UDCUP PO PRN (09:54)
[2018-04-28] MEDS ORDERED: LACTULOSE 20 GM/30 ML UDCUP PO PRN (09:54)
[2018-04-28] MEDS ORDERED: BISACODYL 10 MG SUPP PR PRN (09:54)
[2018-04-28] MEDS ORDERED: POLYETHYLENE GLYCOL 3350 17 GM PKT PO PRN (09:54)
--- NOTE | 2018-04-28 10:57 | CPEKG ---
Test Reason : OPEN Blood Pressure : / mmHG Vent. Rate : 066 BPM Atrial Rate : 066 BPM P-R Int : 147 ms QRS Dur : 095 ms QT Int : 438 ms P-R-T Axes : 068 059 014 degrees QTc Int : 459 ms Sinus rhythm Low voltage, extremity and precordial leads Confirmed by Bryce Johnson ([id number]) on 04/28/2018 10:57:42 AM Referred By: Confirmed By:Bryce Johnson
--- NOTE | 2018-04-28 15:00 | ASMTCMCOM ---
CM Note CM Note Notes: 04/28/2018 Case Management Note Discussed pt during rounds. Diuresis continues. Nila Celaya met w/pt today, see note for details. Met w/pt to discuss denial by [facility] rehab. Pt agreeable to referrals to multiple SNF rehabs regardless of location. Faxed multiple referrals in allscripts. Case Management d/c poc: SNF rehab pending acceptance. Case Management to follow. Date Signed: 04/28/2018 02:59 PM Electronically Signed By:Gerri Swift RN
--- NOTE | 2018-04-28 16:55 | HOSPPROG ---
Hospitalist Progress Note Assessment/Plan: * Acute on chronic diastolic CHF, also pulmonary HTN/COR pulmonale -continue IV lasix - good diuresis * Super morbid obesity -no longer able to ambulate, or even transfer self although improving a bit with fluid removal -PT/OT -met w/Nila Celaya - no psych barriers to weight loss * ROBLES - due to obesity, using CPAP * Decub (POA) - Stage 3 -per wound RN * DM II -DC actos due to edema -try glipizide -concern for metformin given creatinine elevation, although still may be a better option * CKD - baseline creatinine 1.3 VTE ppx: LMWH Dispo: Remain inpatient for IV diuresis, probably at least a few more days. Looking into SNF at discharge. Subjective: In good spirits. Motivated to lose weight. Met with Nila Celaya. Denies dyspnea, chest pain. Leg swelling better. Objective: Vital Signs Temp Pulse Resp BP Pulse Ox 36.4 C 79 16 129/49 H 91 L 04/28/18 16:26 04/28/18 16:26 04/28/18 16:26 04/28/18 16:26 04/28/18 16:26 Laboratory Results 04/28/18 05:06 04/28/18 05:06 04/27/18 04/28/18 04/29/18 05:59 05:59 05:59 Intake Total 008 479 1785 Output Total 2070 3400 1900 Balance -1820 -3000 -400 - Physical Exam Constitutional: no apparent distress, obese Eyes: PERRL, anicteric sclera, EOMI Ears, Nose, Mouth, Throat: moist mucous membranes, hearing normal, ears appear normal, no oral mucosal ulcers Cardiovascular: regular rate and rhythym, edema Respiratory: other (clear anterolaterally) Gastrointestinal: normoactive bowel sounds, soft, non-tender abdomen, no palpable masses Genitourinary: no bladder fullness, no bladder tenderness, no renal bruits Skin: no rashes or abrasions, no fluctuance, no induration, other (erythema on dorsum of right foot, improving) Neurologic: AAOx3 Psychiatric: interacting appropriately, not anxious, not encephalopathic, thought process linear ICD10 Worksheet Patient Problems: Problems Problem Status Onset Lymphedema Acute Morbid obesity Acute Skin excoriation Acute Cellulitis Acute Right medial tibial plateau fracture Acute
[2018-04-28] MEDS: SERTRALINE HCL 50 MG TAB PO SCH (21:42)
[2018-04-28] MEDS: ATORVASTATIN CALCIUM 20 MG TAB PO SCH (21:42)
[2018-04-28] MEDS: SENNOSIDES/DOCUSATE SODIUM TAB PO SCH (21:44)
[2018-04-29] MEDS: ACETAMINOPHEN 325 MG TAB PO PRN ×4 (00:02→22:55)
[2018-04-29] MEDS: INSULIN REGULAR HUMAN 100 UNIT/ML UNIT SC SCH ×2 (07:46→12:12)
[2018-04-29] MEDS: DOXYCYCLINE HYCLATE 100 MG CAP/TAB PO SCH ×2 (07:55→21:39)
[2018-04-29] MEDS: glipiZIDE 5 MG TAB PO SCH (07:55)
[2018-04-29] MEDS: FUROSEMIDE 40 MG/4 ML VIAL IVP SCH ×2 (07:55→14:06)
[2018-04-29] MEDS: CHOLECALCIFEROL VIT D3 2,000 UNITS TAB/CAP PO SCH (07:56)
[2018-04-29] MEDS: CETIRIZINE 10 MG TAB PO SCH (07:57)
[2018-04-29] MEDS: ENOXAPARIN 60 MG/0.6 ML SYR SC SCH ×2 (07:57→21:37)
[2018-04-29] MEDS: LISINOPRIL 2.5 MG TAB PO SCH (07:57)
[2018-04-29] MEDS: ASPIRIN EC 81 MG TAB PO SCH (07:57)
[2018-04-29] MEDS: MUPIROCIN 2% 22 GM OINT TP SCH ×2 (08:05→21:36)
[2018-04-29] MEDS: NYSTATIN POWDER 15 GM BTL TP SCH ×3 (08:05→21:37)
[2018-04-29] MEDS: HYDROCORTISONE 1% CREAM TP SCH ×2 (08:06→21:36)
[2018-04-29] MEDS: SENNOSIDES/DOCUSATE SODIUM TAB PO SCH ×2 (08:06→21:39)
--- NOTE | 2018-04-29 08:37 | WOCRNPDOC ---
WOCRN Advanced Assessment Note - Skin Integrity Problem, Advanced Assess Right Medial Distal Ischial Tuberosity Pressure Injury Dressing Type: Mepilex Border Dressing Description: Intact, Shadowed Exudate Amount: Scant Exudate Characteristic(s): Serosanguinous, Serous Integumentary Issue Intervention: Dressing Changed, Hydrogel Applied Wound Bed Color: Karns, Red Wound Bed Constitution: Granulation Tissue (40%), Red/Karns - Non Granular Tissue (60%) Site Measurement - Head-to-Toe Length X Width X Depth (cm): 0.5x1x0.2 Pressure Injury Stage: Stage 3 Pressure Injury Present on Admit: Yes Right Medial Proximal Ischial Tuberosity Pressure Injury Dressing Type: Mepilex Border Dressing Description: Intact, Shadowed Exudate Amount: Scant Exudate Characteristic(s): Serosanguinous, Serous Integumentary Issue Intervention: Dressing Changed, Hydrogel Applied Wound Bed Color: Karns, Red Wound Bed Constitution: Granulation Tissue (50%), Red/Karns - Non Granular Tissue (50%) Site Measurement - Head-to-Toe Length X Width X Depth (cm): 2.2x3x0.2 Pressure Injury Stage: Stage 3 Pressure Injury Present on Admit: Yes Skin Integrity Problem Comment: Dressings being changed by Clarissa DURANT when WOC RN arrived. Wounds on the left ischial tuberosity already redressed. Patient laying on her left side with wounds on the right ischial tuberosity uncovered, cleansed, and wound gel applied. New Mepilex sacral dressing applied. Wounds are still painful/tender to patient. Patient has difficulty remaining on her side for assessment. Wound care will round again at the end of the week. Right Lateral Proximal Ischial Tuberosity Pressure Injury Dressing Type: Mepilex Border Dressing Description: Intact, Shadowed Exudate Amount: Scant Exudate Characteristic(s): Serosanguinous, Serous Integumentary Issue Intervention: Dressing Changed, Hydrogel Applied Sherry Wound Tissue: Intact, Painful/Tender Wound Bed Color: Karns, Red Wound Bed Constitution: Granulation Tissue (50%), Red/Karns - Non Granular Tissue (50%) Site Measurement - Head-to-Toe Length X Width X Depth (cm): 3x1.5x0.2 Pressure Injury Stage: Stage 3 Pressure Injury Present on Admit: Yes Right Lateral Distal Ischial Tuberosity Pressure Injury Dressing Type: Mepilex Border Dressing Description: Intact, Shadowed Exudate Amount: Scant Exudate Characteristic(s): Serosanguinous, Serous Integumentary Issue Intervention: Dressing Changed, Hydrogel Applied Sherry Wound Tissue: Intact, Painful/Tender Wound Bed Color: Karns, Red, Yellow Wound Bed Constitution: Granulation Tissue (50%), Red/Karns - Non Granular Tissue (40%), Adhered Slough (10%) Site Measurement - Head-to-Toe Length X Width X Depth (cm): 1x1.3x0.2 Pressure Injury Stage: Stage 3 Pressure Injury Present on Admit: Yes Right Lateral Ischial Tuberosity Pressure Injury Dressing Type: Mepilex Border Dressing Description: Intact, Shadowed Exudate Amount: Scant Exudate Characteristic(s): Serosanguinous, Serous Integumentary Issue Intervention: Dressing Changed, Hydrogel Applied Sherry Wound Tissue: Intact, Painful/Tender Wound Bed Color: Karns, Red Wound Bed Constitution: Granulation Tissue (50%), Red/Karns - Non Granular Tissue (50%) Site Measurement - Head-to-Toe Length X Width X Depth (cm): 2x1.5x0.2 Pressure Injury Stage: Stage 3 Pressure Injury Present on Admit: Yes Left Lateral Ischial Tuberosity Pressure Injury Dressing Type: Mepilex Border Dressing Description: Clean/Dry, Intact Exudate Amount: Scant Exudate Characteristic(s): Serous Integumentary Issue Intervention: Visualized Under Dressing Sherry Wound Tissue: Intact, Painful/Tender Wound Bed Color: Karns, Red Wound Bed Constitution: Granulation Tissue (50%), Red/Karns - Non Granular Tissue (50%) Wound Edges: Attached Site Measurement - Head-to-Toe Length X Width X Depth (cm): 1.5x1x0.2 Pressure Injury Stage: Stage 3 Pressure Injury Present on Admit: Yes Left Medial Ischial Tuberosity Pressure Injury Dressing Type: Mepilex Border Dressing Description: Clean/Dry, Intact Exudate Amount: Scant Exudate Characteristic(s): Serous Integumentary Issue Intervention: Visualized Under Dressing Sherry Wound Tissue: Intact, Painful/Tender Wound Bed Color: Karns, Red Wound Bed Constitution: Granulation Tissue (50%), Red/Karns - Non Granular Tissue (50%) Wound Edges: Attached Site Odor: None Site Measurement - Head-to-Toe Length X Width X Depth (cm): 3x3.5x0.2 Pressure Injury Stage: Stage 3 Pressure Injury Present on Admit: Yes Skin Integrity Problem Comment: Wounds assessed when patient turned to other side. Wounds look like they are healing, mixture of granulation and non- granulation tissue. Wound care will round again at the end of the week.
--- NOTE | 2018-04-29 10:13 | ASMTCMCOM ---
CM Note CM Note Notes: Kim with [employer] was here to speak with pt. Shared newest PT note. Kim thought it was positive that Pt was seen as working hard in PT, transferring with a 2 person assist and feeling like her legs were strong. She was also pleased that pt had support at home through [facility] and [facility]. CM to follow. D/C Plan SNF Date Signed: 04/29/2018 10:12 AM Electronically Signed By:Veronica Cabrera
[2018-04-29] MEDS ORDERED: PROTOCOL POTASSIUM 1 DOSE MISC PRN (11:53)
[2018-04-29] MEDS ORDERED: PROTOCOL MAGNESIUM 1 DOSE IV PRN (11:53)
[2018-04-29] MEDS ORDERED: POTASSIUM CL 10 MEQ TAB PO ONE (12:10)
[2018-04-29] MEDS ORDERED: MAGNESIUM SULF 2 GM/WATER 50 ML IV ONE (12:11)
--- NOTE | 2018-04-29 13:58 | HOSPPROG ---
Hospitalist Progress Note Assessment/Plan: 57-year-old admitted with failure to thrive and inability to care for self at home. Found to have extensive fluid overload and anasarca on admission and has been getting IV diuresis since admission. She has lost significant weight over night however her creatinine is starting to increase. * Acute on chronic diastolic CHF, also pulmonary HTN/COR pulmonale * Will change to oral Lasix tomorrow given increased creatinine. * Monitor diuresis on oral Lasix to make sure she continues to diurese and can start moving towards rehab * Super morbid obesity * Unable to ambulate however with diuresis she has improved and case management working with patient. * Continue PT and OT * ROBLES - due to obesity, using CPAP * Decub (POA) - Stage 3 -per wound RN * DM II * Blood sugars at good control will discontinue insulin sliding scale and check blood sugars once to twice daily as needed * CKD - baseline creatinine 1.3, slightly increased creatinine this morning at 1.4 will repeat tomorrow and switch over to oral Lasix tomorrow. VTE ppx: LMWH Dispo: Remain inpatient for IV diuresis, probably at least a few more days. Looking into SNF at discharge. Subjective: Patient new to me and chart reviewed. Feeling better and stronger able to do more of her transfers at this time Objective: Vital Signs Temp Pulse Resp BP Pulse Ox 36.6 C 78 19 115/68 89 L 04/29/18 07:10 04/29/18 07:10 04/29/18 07:10 04/29/18 07:10 04/29/18 07:10 Laboratory Results 04/29/18 05:20 04/29/18 05:20 04/28/18 04/29/18 04/30/18 05:59 05:59 05:59 Intake Total 400 1900 Output Total 3400 2600 1100 Balance -3000 -700 -1100 - Physical Exam Constitutional: obese Eyes: PERRL Ears, Nose, Mouth, Throat: moist mucous membranes Cardiovascular: regular rate and rhythym Respiratory: no respiratory distress, clear to auscultation, reduced air movement Gastrointestinal: soft, non-tender abdomen Skin: normal color Musculoskeletal: generalized weakness Neurologic: AAOx3 Psychiatric: interacting appropriately ICD10 Worksheet Patient Problems: Problems Problem Status Onset Right medial tibial plateau fracture Acute Morbid obesity Acute Cellulitis Acute Lymphedema Acute Skin excoriation Acute
[2018-04-29] MEDS: ATORVASTATIN CALCIUM 20 MG TAB PO SCH (21:39)
[2018-04-29] MEDS: SERTRALINE HCL 50 MG TAB PO SCH (21:39)
[2018-04-30] MEDS ORDERED: POTASSIUM CL 10 MEQ TAB PO ONE (07:51)
[2018-04-30] MEDS ORDERED: MAGNESIUM SULF 1 GM/DEXTROSE 100 ML IV ONE (07:56)
[2018-04-30] MEDS ORDERED: FUROSEMIDE 80 MG TAB PO SCH (09:00)
[2018-04-30] MEDS: glipiZIDE 5 MG TAB PO SCH (09:39)
[2018-04-30] MEDS: SENNOSIDES/DOCUSATE SODIUM TAB PO SCH ×2 (09:39→22:56)
[2018-04-30] MEDS: LISINOPRIL 2.5 MG TAB PO SCH (09:40)
[2018-04-30] MEDS: ENOXAPARIN 60 MG/0.6 ML SYR SC SCH ×2 (09:40→20:10)
[2018-04-30] MEDS: ACETAMINOPHEN 325 MG TAB PO PRN ×3 (09:40→20:13)
[2018-04-30] MEDS: CHOLECALCIFEROL VIT D3 2,000 UNITS TAB/CAP PO SCH (09:40)
[2018-04-30] MEDS: ASPIRIN EC 81 MG TAB PO SCH (09:41)
[2018-04-30] MEDS: CETIRIZINE 10 MG TAB PO SCH (09:41)
[2018-04-30] MEDS: DOXYCYCLINE HYCLATE 100 MG CAP/TAB PO SCH ×2 (09:41→20:10)
[2018-04-30] MEDS: MUPIROCIN 2% 22 GM OINT TP SCH ×2 (09:41→20:26)
[2018-04-30] MEDS: HYDROCORTISONE 1% CREAM TP SCH ×2 (09:42→20:22)
[2018-04-30] MEDS: NYSTATIN POWDER 15 GM BTL TP SCH ×3 (09:42→22:57)
[2018-04-30] MEDS: ONDANSETRON DISINTEGRATING 4 MG TAB PO PRN (09:59)
--- NOTE | 2018-04-30 12:52 | HOSPPROG ---
Hospitalist Progress Note Assessment/Plan: * Acute on chronic diastolic CHF, also pulmonary HTN/COR pulmonale -IV lasix - good diuresis -still lots of fluid - creatinine stable - continue IV lasix * Super morbid obesity -no longer able to ambulate, or even transfer self -worsened by edema and recent spider bite -needs rehab * ROBLES/CPAP - due to obesity * Decub (POA) - Stage 3 -per wound RN * DM II -DC actos due to edema -try glipizide -concern for metformin given creatinine elevation, although still may be a better option * CKD - baseline creatinine 1.3 Subjective: Still wants more fluid off prior to rehab Objective: Vital Signs Temp Pulse Resp BP Pulse Ox 36.6 C 67 15 123/48 H 94 04/30/18 09:15 04/30/18 09:15 04/30/18 09:15 04/30/18 09:15 04/30/18 09:15 Laboratory Results 04/29/18 05:20 04/30/18 03:55 04/29/18 04/30/18 05/01/18 05:59 05:59 05:59 Intake Total 1900 1550 Output Total 2600 4500 Balance -700 -2950 - Physical Exam Constitutional: no apparent distress, appears nourished, not in pain Cardiovascular: regular rate and rhythym, no murmur, rub, or gallop, edema (4+) Respiratory: no respiratory distress, no rales or rhonchi, clear to auscultation Gastrointestinal: normoactive bowel sounds, soft, non-tender abdomen, no palpable masses Skin: no rashes or abrasions, no fluctuance, no induration Neurologic: AAOx3, sensation intact bilaterally Psychiatric: interacting appropriately, not anxious, not encephalopathic, thought process linear ICD10 Worksheet Patient Problems: Problems Problem Status Onset Right medial tibial plateau fracture Acute Morbid obesity Acute Cellulitis Acute Lymphedema Acute Skin excoriation Acute
--- NOTE | 2018-04-30 15:17 | ASMTCMCOM ---
CM Note CM Note Notes: 04/30/2018 Case Management Note Faxed multiple referrals. Bariatric needs make placement challenging. [facility] in [place] is out of network for patient. Faxed referral to [facility] in [place] a facility that specializes in Bariatric needs. Discussed w/pt. Pt willing to private pay for facility in [facility]. Per patient if in network facility can not accept pt, out of network fees will be waived for accepting facility. Pt is capped at 30 rehab days per calendar year. Notified Leda at [facility]. Leda to discuss with DON of [facility]. Case Management d/c poc: SNF rehab pending acceptance. Case Management to follow. Date Signed: 04/30/2018 03:16 PM Electronically Signed By:Gerri Swift RN
[2018-04-30] MEDS: FUROSEMIDE 40 MG/4 ML VIAL IVP SCH (15:33)
[2018-04-30] MEDS: SERTRALINE HCL 50 MG TAB PO SCH (20:11)
[2018-04-30] MEDS: ATORVASTATIN CALCIUM 20 MG TAB PO SCH (20:11)
[2018-05-01] MEDS ORDERED: POTASSIUM CL 10 MEQ TAB PO ONE (06:55)
[2018-05-01] MEDS: DOXYCYCLINE HYCLATE 100 MG CAP/TAB PO SCH ×2 (08:18→20:50)
[2018-05-01] MEDS: CHOLECALCIFEROL VIT D3 2,000 UNITS TAB/CAP PO SCH (08:18)
[2018-05-01] MEDS: ASPIRIN EC 81 MG TAB PO SCH (08:18)
[2018-05-01] MEDS: LISINOPRIL 2.5 MG TAB PO SCH (08:19)
[2018-05-01] MEDS: CETIRIZINE 10 MG TAB PO SCH (08:21)
[2018-05-01] MEDS: SENNOSIDES/DOCUSATE SODIUM TAB PO SCH ×2 (08:21→20:49)
[2018-05-01] MEDS: FUROSEMIDE 40 MG/4 ML VIAL IVP SCH ×2 (08:22→16:05)
[2018-05-01] MEDS: glipiZIDE 5 MG TAB PO SCH (08:22)
[2018-05-01] MEDS: ENOXAPARIN 60 MG/0.6 ML SYR SC SCH ×2 (08:23→20:54)
[2018-05-01] MEDS: NYSTATIN POWDER 15 GM BTL TP SCH ×3 (08:24→20:50)
[2018-05-01] MEDS: HYDROCORTISONE 1% CREAM TP SCH ×2 (08:24→20:56)
[2018-05-01] MEDS: MUPIROCIN 2% 22 GM OINT TP SCH ×2 (08:25→20:51)
[2018-05-01] MEDS ORDERED: MAGNESIUM SULF 1 GM/DEXTROSE 100 ML IV ONE (08:57)
--- NOTE | 2018-05-01 14:14 | ASMTCMCOM ---
CM Note CM Note Notes: Case Management Note Phone call from [facility] health requesting updates. Leda from [facility] visited pt and declined pt d/t bariatric needs. Chikis [phone] [facility] visited pt and accepted pt. Met w/pt and friend Jennifer Calderon [phone] to discuss concerns on limited options for SNF rehab. Explained referral process and that case management is unable to offer reasons why pt has been declined from facilities. Offerred to provide phone number for Leda from [facility], pt declined. Discussed that pt father can use Uber or Lyft to visit pt in [place]. felt that friends could transport him as well. Case Management d/c poc: [facility] [address] [place] [id number] Case Management to follow. Date Signed: 05/01/2018 02:13 PM Electronically Signed By:Gerri Swift RN
--- NOTE | 2018-05-01 14:17 | HOSPPROG ---
Hospitalist Progress Note Assessment/Plan: 57-year-old admitted with failure to thrive and inability to care for self at home. Found to have extensive fluid overload and anasarca on admission and has been getting IV diuresis since admission. She has lost significant weight, her creatinine is starting to increase. First encounter, chart reviewed. * Acute on chronic diastolic CHF, also pulmonary HTN/COR pulmonale -IV lasix - good diuresis -still lots of fluid - creatinine stable - continue IV lasix -25 pounds off since 04/25 -can change ot oral soon * Super morbid obesity -no longer able to ambulate, or even transfer self -worsened by edema and recent spider bite -needs rehab * ROBLES/CPAP - due to obesity * Decub (POA) - Stage 3 -per wound RN * DM II -DC actos due to edema -try glipizide -concern for metformin given creatinine elevation, although still may be a better option * CKD - baseline creatinine 1.3 -1.4 today -recheck in a.m. *plan: can go to [facility]-they specialize in caring for obese patient. If stable; needs early dc due to needing a bariatric stretcher. Subjective: Myra has no complaints and is agreeable to go to [facility] Objective: Vital Signs Temp Pulse Resp BP Pulse Ox 36.3 C 76 16 103/53 L 92 05/01/18 11:56 05/01/18 11:56 05/01/18 11:56 05/01/18 11:56 05/01/18 11:56 Laboratory Results 04/29/18 05:20 05/01/18 04:19 04/30/18 05/01/18 05/02/18 05:59 05:59 05:59 Intake Total 1550 400 Output Total 4500 2200 100 Balance -2950 -1800 -100 - Physical Exam Constitutional: not in pain, chronically ill appearing, obese Eyes: PERRL Ears, Nose, Mouth, Throat: hearing normal Cardiovascular: regular rate and rhythym (distant due to her size) Respiratory: no respiratory distress Skin: warm, other (large pannus, legs extremely large ) Musculoskeletal: generalized weakness, other (almost completely bed ridden) Neurologic: AAOx3 Psychiatric: interacting appropriately ICD10 Worksheet Patient Problems: Problems Problem Status Onset Lymphedema Acute Morbid obesity Acute Skin excoriation Acute Cellulitis Acute Right medial tibial plateau fracture Acute
[2018-05-01] MEDS: ATORVASTATIN CALCIUM 20 MG TAB PO SCH (20:48)
[2018-05-01] MEDS: SERTRALINE HCL 50 MG TAB PO SCH (20:48)
[2018-05-01] MEDS: ACETAMINOPHEN 325 MG TAB PO PRN (20:53)
[2018-05-02] MEDS ORDERED: POTASSIUM CL 10 MEQ TAB PO ONE (08:08)
[2018-05-02] MEDS ORDERED: MAGNESIUM SULF 1 GM/DEXTROSE 100 ML IV ONE (09:13)
[2018-05-02] MEDS ORDERED: MAGNESIUM SULF 1 GM/DEXTROSE 100 ML BAG IV ONE (09:14)
--- NOTE | 2018-05-02 09:14 | WOCRNPDOC ---
DAVID Advanced Assessment Note - Skin Integrity Problem, Advanced Assess Left Lateral Ischial Tuberosity Pressure Injury Dressing Type: Allevyn Life Wound Bed Constitution: Healed Left Medial Ischial Tuberosity Pressure Injury Dressing Type: Allevyn Life Dressing Description: Clean/Dry, Intact Exudate Amount: Scant Exudate Characteristic(s): Serous Integumentary Issue Intervention: Dressing Changed, Hydrogel Applied Wound Bed Color: Red Wound Bed Constitution: Granulation Tissue (100%) Wound Edges: Attached Site Measurement - Head-to-Toe Length X Width X Depth (cm): 1.2x1.7x0.3 Pressure Injury Stage: Stage 3 Pressure Injury Present on Admit: Yes Skin Integrity Problem Comment: All wounds in various stages of healing. Cleansed all wounds with NS and gauze. Wound gel applied and new foam dressings placed. Wound care will round again next week. Right Medial Proximal Ischial Tuberosity Pressure Injury Dressing Type: Mepilex Border Dressing Description: Clean/Dry, Intact Exudate Amount: Scant Exudate Characteristic(s): Serosanguinous Integumentary Issue Intervention: Dressing Changed, Dressing Initialed & Dated, Hydrogel Applied Wound Bed Color: Red Wound Bed Constitution: Granulation Tissue Wound Edges: Epithelizing Site Measurement - Head-to-Toe Length X Width X Depth (cm): 1.2x1.4x0.2 Pressure Injury Stage: Stage 3 Pressure Injury Present on Admit: Yes Right Medial Distal Ischial Tuberosity Pressure Injury Dressing Type: Mepilex Border Wound Bed Constitution: Healed Right Lateral Proximal Ischial Tuberosity Pressure Injury Dressing Type: Mepilex Border Dressing Description: Clean/Dry, Intact Exudate Amount: Scant Exudate Characteristic(s): Serosanguinous Integumentary Issue Intervention: Dressing Changed, Dressing Initialed & Dated, Hydrogel Applied Wound Bed Color: Red Wound Bed Constitution: Granulation Tissue Wound Edges: Epithelizing, Attached Site Measurement - Head-to-Toe Length X Width X Depth (cm): 1.3x1.1x0.2 Pressure Injury Stage: Stage 3 Pressure Injury Present on Admit: Yes Right Lateral Distal Ischial Tuberosity Pressure Injury Dressing Type: Mepilex Border Dressing Description: Clean/Dry, Intact Exudate Amount: Scant Exudate Characteristic(s): Serosanguinous Integumentary Issue Intervention: Dressing Changed, Dressing Initialed & Dated, Hydrogel Applied Wound Bed Color: Red Wound Bed Constitution: Granulation Tissue Wound Edges: Epithelizing, Attached Site Measurement - Head-to-Toe Length X Width X Depth (cm): 0.9x0.7x0.2 Pressure Injury Stage: Stage 3 Pressure Injury Present on Admit: Yes Right Lateral Ischial Tuberosity Pressure Injury Dressing Type: Mepilex Border Dressing Description: Clean/Dry, Intact Exudate Amount: Scant Exudate Characteristic(s): Serosanguinous Integumentary Issue Intervention: Dressing Changed, Dressing Initialed & Dated, Hydrogel Applied Wound Bed Color: Red Wound Bed Constitution: Granulation Tissue Wound Edges: Epithelizing, Attached Site Measurement - Head-to-Toe Length X Width X Depth (cm): 1.3x1x0.2 Pressure Injury Stage: Stage 3 Pressure Injury Present on Admit: Yes
[2018-05-02] MEDS: CHOLECALCIFEROL VIT D3 2,000 UNITS TAB/CAP PO SCH (09:19)
[2018-05-02] MEDS: SENNOSIDES/DOCUSATE SODIUM TAB PO SCH (09:19)
[2018-05-02] MEDS: CETIRIZINE 10 MG TAB PO SCH (09:19)
[2018-05-02] MEDS: FUROSEMIDE 40 MG TAB PO SCH ×2 (09:19→14:26)
[2018-05-02] MEDS: glipiZIDE 5 MG TAB PO SCH (09:19)
[2018-05-02] MEDS: ASPIRIN EC 81 MG TAB PO SCH (09:20)
[2018-05-02] MEDS: ACETAMINOPHEN 325 MG TAB PO PRN ×2 (09:20→15:40)
[2018-05-02] MEDS: LISINOPRIL 2.5 MG TAB PO SCH (09:20)
[2018-05-02] MEDS: ENOXAPARIN 60 MG/0.6 ML SYR SC SCH (09:20)
[2018-05-02] MEDS: DOXYCYCLINE HYCLATE 100 MG CAP/TAB PO SCH (09:20)
[2018-05-02] MEDS: MUPIROCIN 2% 22 GM OINT TP SCH (09:22)
[2018-05-02] MEDS: HYDROCORTISONE 1% CREAM TP SCH (09:22)
[2018-05-02] MEDS: NYSTATIN POWDER 15 GM BTL TP SCH (09:22)
[2018-05-02] MEDS: ONDANSETRON DISINTEGRATING 4 MG TAB PO PRN (09:36)
--- NOTE | 2018-05-02 09:38 | PDIAF ---
- Diagnosis Code Status: Full Code - Medication Management Discharge Medications: electronically signed and located in the Home Medication List. - Orders Services needed: Physical Therapy, Occupational Therapy Oxygen: CPAP at night Weigh Patient: daily Cisneros: Not applicable Additional Instructions: Here are your discharge instructions: 1. We have made the following medication adjustments: - Added furosemide (lasix) 40mg twice daily as well as a potassium supplement daily. - We have stopped your pioglitazone (actos) as this can cause you to retain fluid and instead switched to glipizide for your diabetes. - Otherwise continue your medications as prescribed 2. I recommend checking your labs (kidney function, electrolytes) on Saturday to ensure things are going smoothly with diuresis. Wound care orders: Dressing change to left and right buttock every 2 days and PRN 1. Clean wound bed with NS and gauze 2. Apply wound gel to wound bed 3. Skin prep to margy wound tissue 4. Apply Mepilex sacral dressing (or other bordered foam dressing) to cover wounds - Labs/Radiology BMP Date: 05/05/18 (monitor creatinine) - Follow Up Care Current Providers and Referrals: Patient,NotPresent [Unknown] - As per Instructions
--- NOTE | 2018-05-02 09:40 | PDDCSUM ---
Discharge Summary Discharge Summary: Date of Admission: 04/25/2018 Date of Discharge: 05/02/2018 Consultants: wound care Procedures/Studies: 1. TTE - normal LV (EF 61%), normal diastolic fxn, normal RV fxn, mild TR, mild dilated LA, RVSP 56-61mmHg, normal valves 2. Bilateral LE venous doppler US - negative for DVT Disposition: discharged to SNF for ongoing PT/OT Discharge Diagnoses: 1. Decompensated right sided CHF, due to 2. Moderate pulmonary hypertension, related to 3. Severe morbid obesity 4. ROBLES/OHS on CPAP 5. Decubitus wounds (bilateral ischial tuberosities, POA) 6. CKD 7. Type 2 diabetes 8. H/o right foot spider bite Brief Hospital Course: 57-year-old severe morbid obesity admitted with failure to thrive and inability to care for self at home due to recent weight gain. She had a BMI greater than 90 on admission and was felt to have extensive fluid overload/anasarca. She was diuresed with IV lasix with good result and her weight decreased from 272->244 kg. She will be continued on oral lasix at discharge. Her mobility did improved somewhat with fluid removal however she will require ongoing rehab. The patient met with our behavioral health nurse who did not identify any psychiatric barriers to who weight loss. The patient is motivated to lose weight and consider bariatric surgery when appropriate. 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 In terms of her diabetes, we switched her from pioglitazone to glipizide to avoid fluid retention. Her creatinine remained at baseline 1.3. Medications: Please refer to EMR for complete list. Changes this admission include addition of furosemide 40mg BID, KCl 20mEq daily, and glipizide 5mg BID. Pioglitazone was discontinued. Follow Up Plan: 1. Recommend repeating BMP in 4-5 days to monitor Cr, electrolytes 2. Continue to monitor response to diuresis and daily weights Physical Exam: Vitals reviewed, normotensive and afebrile. Alert and oriented, distant heart sounds with no S3 or murmur, lungs clear anterolaterally, abdomen soft. Some skin breakdown in lateral pannus. Healing spider bite on dorsum of right foot.
[2018-05-02 15:04] VITALS: BP 119/58
--- NOTE | 2018-05-02 15:54 | ASMTDCNOTE ---
Case Management Discharge Discharge Order Complete? Answers: Yes Patient to Obtain Answers: Other Notes: [facility] Medications Transportation Arranged Answers: [facility] Stretcher Transport will Pick (Date 05/02/2018 04:30 PM & Time) Case Management Transport Answers: Yes Form Complete Faxed Final Orders Answers: Yes Agency/Facility Transfer Answers: Yes Report Printed & Faxed to Receiving Agency Discharge Comments Notes: Insurance authorization received by [facility]. Transport set up with [facility] for stretcher transfer. D/C order, meds, facility transfer sent via [employer]. Pt discharging today. Date Signed: 05/02/2018 03:54 PM Electronically Signed By:KAREN Vernon
--- NOTE | 2018-05-02 15:56 | ASMTLACE ---
LACE Length of stay for Answers: 7-13 days current admission Acuity / Level of Answers: Yes Care: Did the patient have an inpatient admission? Comorbidities - select Answers: Diabetes (uncontrolled or all that apply controlled) Other Notes: HTN # of Emergency department Answers: 1-2 visits in the last 6 months Score: 11 Date Signed: 05/02/2018 03:55 PM Electronically Signed By:KAREN Vernon
--- NOTE | 2018-05-02 16:08 | ASDISCHSUM ---
Discharge Information Plan Status:SNF Medically Cleared to Leave:05/01/2018 Discharge Date:05/01/2018 CM D/C Disposition:Longterm Facility ADT D/C Disposition:Longterm Facility Projected Discharge Date:05/02/2018 11:00 AM Transportation at D/C:ALS/BLS Discharge Delay Reason: Follow-Up Date:05/02/2018 11:00 AM Discharge Slot: Final Diagnosis: Placement Information Referral Type:*Home Health Care Services Referral ID:[id number] Provider Name: Address 1: Phone Number: Address 2: Fax Number: City: Selection Factors: State: Referral Type:*Skilled Nursing/SNF Referral ID:[id number] Provider Name:[facility] Address 1:[address] Address 2: City:[place] Selection Factors: State:[place] Referral Type:Palliative Care Referral ID:[id number] Provider Name:[facility] Address 1:[address] Phone Number: Address 2: Fax Number: [facility]:[place] Selection Factors: State:[place] Patient Contact Information Contact Name:RICKEY Relationship: Address: City: Alternate Phone: [facility] Code: Email: Financial Information Financial Class:HMO and PPO Plans Primary Plan Desc:Healthcare IT Primary Plan Number:[id number] Secondary Plan Desc: Secondary Plan Number: Assessment Information LACE LACE Length of stay for Answers: 7-13 days current admission Acuity / Level of Answers: Yes Care: Did the patient have an inpatient admission? Comorbidities - select Answers: Diabetes (uncontrolled or all that apply controlled) Other Notes: HTN # of Emergency department Answers: 1-2 visits in the last 6 months Score: 11 Date Signed: 05/02/2018 03:55 PM Electronically Signed By:KAREN Vernon [facility] CM Progress Note CM Note CM Note Notes: Pts case discussed in tx rounds. Pt is a 57 y/p female admitted for obesity, failure to thrive and skin lesions. Pt has not left her home in a year. Therapies have been ordered and awaiting recommendations. Wound care is involved. Pt has an elderly father that is involved. Needs are TBD at this time. CM to follow. Plan: TBD Date Signed: 04/25/2018 12:16 PM Electronically Signed By:CURTIS Jefferson [facility] CM Progress Note CM Note CM Note Notes: Elaine from [facility] reports that pt is current w/ them. CM sent updates to [facility] on allscripts. Date Signed: 04/25/2018 04:28 PM Electronically Signed By:CURTIS Jefferson [facility] CM Progress Note CM Note CM Note Notes: Patient discussed during rounds. Patient shares she was able to walk to transfer to [facility] up until 2 days ago, she states bedsores on legs are limiting factor. We discussed discharge plan, patient would like to go to [facility], she has been at this facility in the past and would like to work with the PT team. CM sent referral to [facility]. Patient has been accepted by [facility] if needed. Patient could discharge in a day or two, pending workup and diuresis . CM to follow. Current Discharge Plan: Pending SNF response, likely in 1-2 days. Date Signed: 04/27/2018 01:33 PM Electronically Signed By:Maggy Roberts [facility] Progress Note CM Note CM Note Notes: 04/28/2018 Case Management Note Discussed pt during rounds. Diuresis continues. Nila Celaya met w/pt today, see note for details. Met w/pt to discuss denial by [facility] rehab. Pt agreeable to referrals to multiple SNF rehabs regardless of location. Faxed multiple referrals in [place]. Case Management d/c poc: SNF rehab pending acceptance. Case Management to follow. Date Signed: 04/28/2018 02:59 PM Electronically Signed By:Gerri Swift RN [facility] CM Progress Note CM Note CM Note Notes: Kim with [facility] was here to speak with pt. Shared newest PT note. Kim thought it was positive that Pt was seen as working hard in PT, transferring with a 2 person assist and feeling like her legs were strong. She was also pleased that pt had support at home through [facility] and [facility]. CM to follow. D/C Plan SNF Date Signed: 04/29/2018 10:12 AM Electronically Signed By:Veronica Cabrera [facility] CM Progress Note CM Note CM Note Notes: 04/30/2018 Case Management Note Faxed multiple referrals. Bariatric needs make placement challenging. [facility] in [place] is out of network for patient. Faxed referral to [facility] in [place] a facility that specializes in Bariatric needs. Discussed w/pt. Pt willing to private pay for facility in [facility]. Per patient if in network facility can not accept pt, out of network fees will be waived for accepting facility. Pt is capped at 30 rehab days per calendar year. Notified Leda at [facility]. Leda to discuss with DON of [facility]. Case Management d/c poc: SNF rehab pending acceptance. Case Management to follow. Date Signed: 04/30/2018 03:16 PM Electronically Signed By:Gerri Swift RN [facility] CM Progress Note CM Note CM Note Notes: Case Management Note Phone call from [facility] requesting updates. Leda from [facility] visited pt and declined pt d/t bariatric needs. Chikis [phone] from [facility] visited pt and accepted pt. Met w/pt and friend Jennifer Calderon [phone] to discuss concerns on limited options for SNF rehab. Explained referral process and that case management is unable to offer reasons why pt has been declined from facilities. Offerred to provide phone number for Leda from [facility], pt declined. Discussed that pt father can use Uber or Lyft to visit pt in [place]. felt that friends could transport him as well. Case Management d/c poc: [facility] [address] [place] [id number] Case Management to follow. Date Signed: 05/01/2018 02:13 PM Electronically Signed By:Gerri Swift RN Case Management Discharge Plan Note Case Management Discharge Discharge Order Complete? Answers: Yes Patient to Obtain Answers: Other Notes: [facility] Medications Transportation Arranged Answers: [facility] Stretcher Transport will Pick (Date 05/02/2018 04:30 PM & Time) Case Management Transport Answers: Yes Form Complete Faxed Final Orders Answers: Yes Agency/Facility Transfer Answers: Yes Report Printed & Faxed to Receiving Agency Discharge Comments Notes: Insurance authorization received by [facility]. Transport set up with [facility] for stretcher transfer. D/C order, meds, facility transfer sent via [employer]. Pt discharging today. Date Signed: 05/02/2018 03:54 PM Electronically Signed By:KAREN Vernon Intervention Information
== END 2018-05-02 17:00 | DRG 205 ==
LOC: EDUNIT# → F2W 23:47 → OBSVTOIN 04-25 12:55 → F2W 04-25 14:56
PROVIDERS: ADMIT Student in an Organized Health Care Education/Training Program; ATTEND Student in an Organized Health Care Education/Training Program
DX: E66.2 Morbid (severe) obesity with alveolar hypoventilation (principal); L89.223 Pressure ulcer of left hip, stage 3; L89.213 Pressure ulcer of right hip, stage 3; I13.0 Hypertensive heart and chronic kidney disease with heart failure and stage 1 through stage 4 chronic kidney disease, or unspecified chronic kidney disease; I50.33 Acute on chronic diastolic (congestive) heart failure; Z68.45 Body mass index [BMI] 70 or greater, adult; R62.7 Adult failure to thrive; N18.2 Chronic kidney disease, stage 2 (mild); I50.810 Right heart failure, unspecified; L30.4 Erythema intertrigo; E11.9 Type 2 diabetes mellitus without complications; D64.9 Anemia, unspecified; I27.20 Pulmonary hypertension, unspecified; Z23 Encounter for immunization; Z74.01 Bed confinement status
CPT/HCPCS: 82607-90; 97110-GP; 97162-GP; 97166-GO; 97530-GO; 97530-GP; 97535-GO; G0008; G0378; J1650; J1940; J3475

== ENCOUNTER 2018-05-02 21:47 | Emergency (ER) | payer OTHER ==
--- NOTE | 2018-05-02 22:01 | EDPHY ---
H & P Time Seen by Provider: 05/02/18 21:49 HPI/ROS: CHIEF COMPLAINT: "They didnt have a bed big enough for me" HISTORY OF PRESENT ILLNESS: 57-year-old female with history of morbid obesity, BMI greater than 90, discharged from [facility] this afternoon to a intermediate facility near [place], [place], returns via ambulance because the intermediate facility did not have a bariatric bed that could accommodate the patient. Patient has no complaints of acute pain or discomfort. Her initial triage note stated tibia and fibula fracture however she has no complaints of this. She denies trauma. Denies falls. REVIEW OF SYSTEMS: 10 systems reviewed and negative with the exception of the elements mentioned in the history of present illness PAST MEDICAL & SURGICAL HISTORY: Morbid obesity, chronic kidney disease, type 2 diabetes, SOCIAL HISTORY: Lives by herself PHYSICAL EXAM (Prior to examination, patient consented to physical exam, hands were washed and my usual and customary physical exam procedures followed) 1) GENERAL: obese, alert oriented person place time events Appears to be in no acute distress. 2) HEAD: Normocephalic, atraumatic 3) HEENT: Pupils equal, round, reactive to light bilaterally. Sclera anicteric. 4) NECK: Full range of motion, no meningeal signs. 5) LUNGS: Clear auscultation bilaterally, no wheezes, no rhonchi, no retractions. 6) HEART: Regular rate and rhythm, no murmur, no heave, no gallop. 7) ABDOMEN: No guarding, no rebound, no focal tenderness, 8) MUSCULOSKELETAL: No peripheral edema or discoloration. 9) BACK: No obvious trauma, no visual or palpable abnormality. 10) SKIN: No rash, no petechiae. 11) Psychiatric: Patient is oriented X 3, there is no agitation. DIFFERENTIAL DIAGNOSIS: In no particular include but limited to morbid obesity , failure to thrive, gravely disabled - Medical/Surgical History Hx Asthma: Yes Hx Chronic Respiratory Disease: No Hx Diabetes: Yes Hx Cardiac Disease: No Hx Renal Disease: No Hx Cirrhosis: No Hx Alcoholism: No Hx HIV/AIDS: No Hx Splenectomy or Spleen Trauma: No Other PMH: Fibromyalgia, asthma, dm t2. sleep apnea, R tib plateu fx, HTN - Social History Smoking Status: Never smoked Constitutional: Initial Vital Signs Temperature (C) 36.4 C 05/02/18 21:47 Heart Rate 81 05/02/18 21:47 Respiratory Rate 20 05/02/18 21:47 Blood Pressure 143/69 H 05/02/18 21:47 O2 Sat (%) 90 L 05/02/18 21:47 O2 Delivery Mode Room Air O2 (L/minute) 2 Allergies/Adverse Reactions: almond Allergy (Verified 02/03/17 12:48) apple Allergy (Verified 02/03/17 12:48) carrot Allergy (Verified 02/03/17 12:48) cephalexin Allergy (Verified 02/03/17 12:48) garlic Allergy (Verified 02/03/17 12:48) metformin Allergy (Verified 02/03/17 12:48) morphine Allergy (Verified 02/03/17 12:48) Pork/Porcine Containing Products Allergy (Verified 02/03/17 12:48) shellfish derived [shrimp] Allergy (Verified 02/03/17 14:59) sitagliptin phosphate [From Januvia] Allergy (Verified 02/03/17 12:48) squash Allergy (Verified 02/03/17 12:48) Sulfa (Sulfonamide Antibiotics) Allergy (Verified 02/03/17 12:48) tomato Allergy (Verified 02/03/17 12:48) almond Allergy (Uncoded 04/28/18 13:24) brazil nut Allergy (Uncoded 04/28/18 13:24) green portillo Allergy (Uncoded 11/23/16 10:38) salmon Allergy (Uncoded 11/23/16 10:38) Home Medications: Medication Instructions Recorded Albuterol [Proventil Inhaler HFA 1 - 2 puffs IH Q4HRS PRN 11/23/16 (*)] Aspirin EC [Aspirin EC 81 mg (*)] 81 mg PO DAILY 11/23/16 Sertraline HCl [Zoloft 50mg (*)] 50 mg PO HS 11/23/16 Cholecalciferol (Vitamin D3) 5,000 unit PO DAILY 02/03/17 [Vitamin D3] Cyclobenzaprine [Flexeril 10 MG 10 mg PO Q8HRS PRN 02/03/17 (*)] Ondansetron [Zofran Odt] 8 mg PO Q6HRS PRN 02/03/17 Doxycycline Hyclate [Vibramycin 100 mg PO BID 14 Days capsule 02/06/17 100 MG (*)] Atorvastatin Calcium [Lipitor 20 20 mg PO HS 04/24/18 mg (*)] Enoxaparin [Lovenox 40 MG (*)] 40 mg SQ DAILY 04/24/18 Lisinopril [Zestril 2.5 mg (*)] 2.5 mg PO DAILY 04/24/18 Loratadine 10 mg PO DAILY 04/24/18 Tylenol ES 500 mg (*) 500 mg PO Q8H PRN 04/24/18 Furosemide [Lasix 40 MG (*)] 40 mg PO BID@0900,1500 tab 05/02/18 Nystatin Powder [Mycostatin Powder] 1 miguel TP TID powder 05/02/18 Potassium Chloride Po [Klor 20 meq PO DAILY #30 pkt 05/02/18 Packets 20 meq (*)] glipiZIDE [Glipizide] 5 mg PO BID #60 tablet 05/02/18 Medical Decision Making ED Course/Re-evaluation: 10:00 p.m.: Reviewed the patient's old medical records. She was discharged Hospital earlier today unfortunately the intermediate facility does not have a bed large enough to accommodate the patient was therefore sent back to the emergency department. At this time the charge nurse and ARN are coordinating with [facility] to see if a bariatric bed can be delivered to the patient's nursing facility tonight. Care of patient under supervision of secondary supervising physician Dr Colon with whom I discussed case. 10:50 p.m.: Patient requested speak with me at this time. She informs me at this time that she would like to go home. She informs me that she has multiple devices at home to assist her with her chronic medical conditions including a bariatric bed. She feels comfortable being discharged home, feels that she is able to care for self. She notes that she does not feel that the intermediate facility that she was discharge 2 in [place], [place] has ability to care for her and did not feel confident the care she will receive there. I reviewed the patient's medical records expressed her my concerns over her ability to care for herself. I believe her to have decision-making capacity at this time. Patient offers to pay for an ambulance [id number]. In my professional opinion, I think the patient necessitates further evaluation. In my professional opinion, the patient fully understands the risks to their health and well-being by leaving the emergency department AGAINST MEDICAL ADVICE. She states that they would like to leave. By leaving AGAINST MEDICAL ADVICE the patient has verbalized understanding and acceptance of the risks of leaving AGAINST MEDICAL ADVICE, including, but not limited to, , permanent and chronic disability, decreased ability and/or inability care for self, permanent and chronic loss of income, and other situations and circumstances too numerous to mention herein. I think the patient has the capacity to fully understand these risks. I have offered ample opportunity to answer questions. Father is at bedside during this discussion. Patient has been informed that they are welcome to return to emergency department at any point for reevaluation. Departure - Departure Disposition: Against Medical Advice Clinical Impression: Morbid obesity Condition: Good Instructions: Weight Management (ED) Referrals: Clarissa Tang MD [Primary Care Provider] - As per Instructions
[2018-05-03 05:36] VITALS: BP 132/77
== END 2018-05-03 00:14 | disposition left against medical advice (07) ==
LOC: EDUNIT# → EDBD
DX: Z53.29 Procedure and treatment not carried out because of patient's decision for other reasons (principal); E66.01 Morbid (severe) obesity due to excess calories; J45.909 Unspecified asthma, uncomplicated; M79.7 Fibromyalgia; I10 Essential (primary) hypertension; G47.30 Sleep apnea, unspecified; Z68.45 Body mass index [BMI] 70 or greater, adult

== ENCOUNTER 2018-05-05 13:23 | Emergency (ER) | payer OTHER ==
--- NOTE | 2018-05-05 13:27 | EDPHY ---
HPI/HX/ROS/PE/MDM Narrative: CHIEF COMPLAINT: Weakness, feels "off" HISTORY OF PRESENT ILLNESS: The patient is a morbidly obese 57 y/o female arriving via EMS from home complaining of weakness and feeling "off." She was admitted for 8 days on on 04/25/18 for failure to thrive and inability to care for herself at home. During that time she was diagnosed with decompensated right -sided CHF and moderate pulmonary hypertension. Her ejection fracture at discharge was 61%. Her medications were adjusted during that visit including an increase in her furosemide to 40mg BID, 20meq KCl, and switch from Actos to glipizide. She reports she is compliant with all of her medications. She has not noticed an increase in urination since increasing her furosemide. On , 3 days ago and the same day she was discharged to a rehab facility, she returned to the ED stating the facility did not have a bed big enough for her. She left that ED visit AMA via ambulance. She is currently living at home with her father and states she is looking for a rehab facility in [place] that meets her requests. She says, "I've offered to pay out of pocket to go somewhere here in [place] that can care for me" and "I think they said I needed more care than I do. I can do a single-person transfer. " She says she needs help with meals and turning in bed, but that she is able to get to the commode and is "highly motivated" to lose weight. Today she complains of feeling, "muscle crampy, nauseous, lightheaded, foggy, my wound is ripped open on my back side," and says "I just feel very odd. Weirdly lethargic. " She denies fever, though she has had chills. Her BGLs have been running 105- 117 today. She also feels nauseated and received IV Zofran en route. No fever, chest pain, shortness of breath, palpitations, diarrhea, urinary complaints, headache, lightheadedness. REVIEW OF SYSTEMS: Aside from elements discussed in the HPI, a comprehensive 10-point review of systems was reviewed and is negative. PAST MEDICAL HISTORY: 1.CHF - right-sided 2. Moderate pulmonary hypertension 3. Diabetes melitis type II 3. Hypertension 4. Hyperlipidemia 5. Decubitus ulcers 6. Morbid obesity 7. Depression 8. Fibromyalgia 9. Obstructive sleep apnea on CPAP 10. CKD SOCIAL HISTORY: Lives in [place]. Employed. Single. Prior medical records reviewed including admission 04/25/18 for failure to thrive and ED visit 05/02/18 the same day she was discharged. VITAL SIGNS: Reviewed by me GENERAL: Morbidly obese with significantly decreased mobility due to multiple heavy panni. Limited exam due to patient size. HEENT: Atraumatic. Eyes: No icterus, no injection. Mouth: moist mucous membranes. No erythema or lesions. Neck: supple with no adenopathy. LUNGS: Distant breath sounds but clear to auscultation bilaterally, no wheezes, rhonchi or rales. No respiratory distress. CARDIAC: Regular rate and rhythm, no rubs, murmurs or gallops. Distant heart sounds. ABDOMEN: Soft, mild RUQ and LUQ tenderness, nondistended. Large, heavy abdominal pannus with skin break down on the right side and skin tear in fold. BACK: Right flank and buttock pannus has multiple areas of superficial skin breakdown with 4-5 oval-shaped areas of breakdown. (Stage II) Difficulty visualizing buttocks or back due to size. With significant assistance from other staff members, the patient was turned further on her side and I was able to visualize bilateral ischial decubitus ulcers. Ulceration on the left has a dressing in place which was left in place. Ulceration on the right is grade stage II-III. EXTREMITIES: Can move extremities with difficulty and assistance. Pain with movement. NEURO: Alert and oriented, grossly nonfocal. SKIN: Warm and dry, no rash. PSYCHIATRIC: Normal mentation, no agitation. Portions of this note were transcribed by a medical center director. I personally performed a history, physical exam, medical decision making, and confirmed accuracy of information the transcribed note. ED Course: Plan for IV, labs, EKG, chest x-ray, and case management consultation. The 12 lead EKG was interpreted by myself. Sinus rhythm, low voltage in the limb leads. See hard copy and/or "tracemaster" electronic copy for interpretation. Chest x-ray: No acute findings. Laboratory evaluation including potassium and magnesium was normal. Cynthia from case management involved. Per her reports: 25+ nursing homes in the [facility] were unable to take care of her due to her bariatric needs. Once she arrived at the facility in [place] on 05/02, she was not complaint with turning checks and requested a catheter they did not have so she demanded to come back to [place]. Case management went to extremes to find placement and also supportive assistance options for home over the course of the last two visits. After prolonged stay in the emergency department and multiple consultations with case management plan was established to discharge the patient to home. I discussed this with the patient's primary care physician, Dr. Jennifer Tijerina, who knows the patient well. Dr. Tijerina's office will help re-establish the patient's daily home visits by a home nursing agency and will also help to arrange OT and PT at home. Patient was comfortable with this plan. Patient's father who is her caregiver at home was in the emergency department and was also comfortable with this plan. MDM: Differential diagnosis of the patient's weakness was considered including but not limited to electrolyte abnormality, anemia, cardiac ischemia, CVA, spinal cord abnormality, and infectious causes. - Data Points Imaging Results: CXR: Impression: Borderline compensated CHF. No pulmonary edema or pneumonia. Dictated By: Marcus Hankins MD Imaging: I viewed and interpreted images myself Laboratory Results: Laboratory Results 05/05/18 14:30 05/05/18 14:30 Point of Care Test Results: Chemistry 05/05/18 14:38 POC Troponin I 0.00 ng/mL ng/mL (0.00-0.08) General Initial Vital Signs: Initial Vital Signs Temperature (C) 36.5 C 05/05/18 13:32 Heart Rate 67 05/05/18 13:32 Respiratory Rate 19 05/05/18 13:32 Blood Pressure 123/71 H 05/05/18 13:32 O2 Sat (%) 94 05/05/18 13:32 O2 Delivery Mode Room Air Allergies/Adverse Reactions: almond Allergy (Verified 02/03/17 12:48) apple Allergy (Verified 02/03/17 12:48) carrot Allergy (Verified 02/03/17 12:48) cephalexin Allergy (Verified 02/03/17 12:48) garlic Allergy (Verified 02/03/17 12:48) metformin Allergy (Verified 02/03/17 12:48) morphine Allergy (Verified 02/03/17 12:48) Pork/Porcine Containing Products Allergy (Verified 02/03/17 12:48) shellfish derived [shrimp] Allergy (Verified 02/03/17 14:59) sitagliptin phosphate [From Januvia] Allergy (Verified 02/03/17 12:48) squash Allergy (Verified 02/03/17 12:48) Sulfa (Sulfonamide Antibiotics) Allergy (Verified 02/03/17 12:48) tomato Allergy (Verified 02/03/17 12:48) almond Allergy (Uncoded 04/28/18 13:24) brazil nut Allergy (Uncoded 04/28/18 13:24) green portillo Allergy (Uncoded 11/23/16 10:38) salmon Allergy (Uncoded 11/23/16 10:38) Home Medications: Medication Instructions Recorded Albuterol [Proventil Inhaler HFA 1 - 2 puffs IH Q4HRS PRN 11/23/16 (*)] Aspirin EC [Aspirin EC 81 mg (*)] 81 mg PO DAILY 11/23/16 Sertraline HCl [Zoloft 50mg (*)] 50 mg PO HS 11/23/16 Cholecalciferol (Vitamin D3) 5,000 unit PO DAILY 02/03/17 [Vitamin D3] Cyclobenzaprine [Flexeril 10 MG 10 mg PO Q8HRS PRN 02/03/17 (*)] Ondansetron [Zofran Odt] 8 mg PO Q6HRS PRN 02/03/17 Doxycycline Hyclate [Vibramycin 100 mg PO BID 14 Days capsule 02/06/17 100 MG (*)] Atorvastatin Calcium [Lipitor 20 20 mg PO HS 04/24/18 mg (*)] Enoxaparin [Lovenox 40 MG (*)] 40 mg SQ DAILY 04/24/18 Lisinopril [Zestril 2.5 mg (*)] 2.5 mg PO DAILY 04/24/18 Loratadine 10 mg PO DAILY 04/24/18 Tylenol ES 500 mg (*) 500 mg PO Q8H PRN 04/24/18 Furosemide [Lasix 40 MG (*)] 40 mg PO BID@0900,1500 tab 05/02/18 Nystatin Powder [Mycostatin Powder] 1 miguel TP TID powder 05/02/18 Potassium Chloride Po [Klor 20 meq PO DAILY #30 pkt 05/02/18 Packets 20 meq (*)] glipiZIDE [Glipizide] 5 mg PO BID #60 tablet 05/02/18 Departure - Departure Disposition: Home, Routine, Self-Care Clinical Impression: Morbid obesity, Generalized weakness Condition: Good Instructions: Weakness (ED) Additional Instructions: Please contact your primary care physician tomorrow without fail. Her office will be able to help reestablish your normal home health care nurse. I have also written an order for home health care nurse as well as for physical therapy and occupational therapy. There is no evidence of electrolyte abnormalities currently. You may be just a bit dehydrated. Please drink plenty of fluid. Continue taking medications as directed. Referrals: Patient,NotPresent [Unknown] - As per Instructions Jennifer Quiñonez [Other] - As per Instructions (Follow-up with Dr. Tijerina. She is aware that you are being discharged home. She will help assist with re- establishing your home health care nurse as well as home PT and OT.) Report Scribed for: Latonya Yun Report Scribed by: Michelle Gutierrez Date of Report: 05/05/18 Time of Report: 16:45
[2018-05-05 14:41] LABS: PLATELET COUNT 225 10^3/uL (150-400)
[2018-05-05 15:01] LABS: INR 1.07 (0.83-1.16); PROTIME(PATIENT) 14.1 SEC (12.0-15.0)
--- NOTE | 2018-05-05 18:00 | ASDISCHSUM ---
Discharge Information Plan Status:Home with Home Health Medically Cleared to Leave: Discharge Date: D/C Disposition:Home Health Service ADT D/C Disposition:Home, Routine, Self-Care Projected Discharge Date:05/05/2018 06:00 PM Transportation at D/C:ALS/BLS Discharge Delay Reason: Follow-Up Date:05/05/2018 06:00 PM Discharge Slot: Final Diagnosis: Placement Information Referral Type:*Home Health Care Services Referral ID:[id number] Provider Name:[facility] (formerly [facility]) [address] [place] [address] Address 2: City:[place] Selection Factors: State:[place] Patient Contact Information Contact Name:RICKEY Relationship:Father Address: City: [facility] Phone: [facility]/Zip Code: Email: Financial Information Financial Class:HMO and PPO Plans Primary Plan Desc:[employer] Primary Plan Number:[id number] Secondary Plan Desc: Secondary Plan Number: Assessment Information [facility] CM Progress Note CM Note CM Note Notes: Pt presented to the ED via EMS for weakness. Pt was recently d/c'd from [facility] on 05/02 [facility] [place]. Pt states she arrived there and the facility did not have the appropriate bariatric bed they said they would have in order to "turn and check" the patient's decubitus ulcers. Pt insisted on returning to [facility] that night; pt presented to the ED that evening and was discharged home. Pt has been home for the last 3 nights and receiving assistance from her elderly father. Pt also has a private GROUP HOME PARAPROFESSIONAL, private Physical Therapist, and Dietitian. Pt would like to go to a SNF rehab. This CM called and spoke w/Chikis w/Colette ([phone]) at [facility]; she states pt arrived and although they did have a bariatric bed it still wasn't "wide enough" for the patient in order to do the "turn and checks" so they were working on getting a larger bariatric bed delivered [facility]. Chikis said the DON and Benefits Coordinator were involved and trying to get the bed but the pt became frustrated, emotionally upset and insisted on being transported back to [facility]. Chikis said they would still be able to accept the pt if needed. Pt states she does not want to go to [facility] due to inadequate equipment (bed, external ward catheter, grab bars, etc.), staffing and concerns for her safety (pt states other pts who appeared to have dementia were coming in and out of her room there). Pt really would like to go to [facility], where she stayed for rehab in Summer 2016. Pt says she would be willing to private pay and/or pay for the rental of the bariatric bed needed there. This CM called and spoke w/Dianne at [facility]. After much discussion and Dianne even speaking w/the DON and Manager Small Business, it was determined that they can't accept pt due to not having adequate staff at this time. Dianne states pt can follow up with her in case things change in the next few days. Pt provided Dianne's contact info. Pt states she feels safe discharging back home if [facility] can restart RN/PT/OT services. This CM called [facility] and spoke w/Sharmin who states they can re-start tomorrow if a new eval to treat order is provided. This CM fax-attached the handwritten order into [employer] and sent referral. Pt's PCP is Dr Clarissa Tang w/[facility]. Dr Tang returned this CM's call and spoke w/the ED MD. Dr Tang says agrees w/DC plan & she will continue to follow up with the patient. Pt also provided non-skilled HC resources, specifically [facility] and [facility] info. Pt provided Meals on Wheels info as well. Pt very pleasant and appreciative of assistance. CM arranged for [facility] stretcher for pt to return home. CM available for further assistance if needed. Date Signed: 05/05/2018 05:58 PM Electronically Signed By:Cynthia Moya RN Intervention Information
--- NOTE | 2018-05-05 19:56 | CPEKG ---
Test Reason : OPEN Blood Pressure : / mmHG Vent. Rate : 070 BPM Atrial Rate : 069 BPM P-R Int : 162 ms QRS Dur : 094 ms QT Int : 436 ms P-R-T Axes : 065 038 -11 degrees QTc Int : 471 ms Sinus rhythm Low voltage, extremity leads Confirmed by Latonya Yun ([id number]) on 05/05/2018 7:55:40 PM Referred By: Confirmed By:Latonya Yun
[2018-05-05 21:16] VITALS: BP 122/64
== END 2018-05-05 21:17 | disposition home or self-care (01) ==
LOC: EDUNIT#
DX: E66.01 Morbid (severe) obesity due to excess calories (principal); R53.1 Weakness; L89.133 Pressure ulcer of right lower back, stage 3; L89.140 Pressure ulcer of left lower back, unstageable; E11.9 Type 2 diabetes mellitus without complications; E78.5 Hyperlipidemia, unspecified; I12.9 Hypertensive chronic kidney disease with stage 1 through stage 4 chronic kidney disease, or unspecified chronic kidney disease; N18.9 Chronic kidney disease, unspecified; I27.20 Pulmonary hypertension, unspecified; I50.9 Heart failure, unspecified; M79.7 Fibromyalgia; G47.33 Obstructive sleep apnea (adult) (pediatric)
CPT/HCPCS: 84484-PO